=== PATIENT | female | born 1970 | race Caucasian/White ===

== ENCOUNTER 2019-11-16 12:45 | Outpatient (RCR) | payer OTHER, SELFPAY ==
--- NOTE | 2019-04-13 14:50 | PT.OIE ---
Current Diagnoses Rectocele (04/07/19) Pelvic and perineal pain (04/07/19) Urgency of urination (04/07/19) Provider Visit Care Team Role Provider Type Deepti Kerr MD Primary Care Provider Non-Staff Specialty: Family Practice Address: [address] [place], [address] Email: SYLVESTER Vivar Attending Provider Non-Staff Specialty: Medical Address: [address] [place] [address], [id number] Email: Physical Therapy Initial Evaluation PT-OP-A Visit Information Start: 04/07/19 09:03 Freq: Status: Active Protocol: Document 04/07/19 09:00 [facility] (Rec: 04/12/19 18:03 [facility] [email or web address]) Out-Patient Physical Therapy Visit Information Visit Information Visit Type Initial Evaluation Visit Note 48 year old female with rectocele and pelvic pressure who would like guidance on a exercise program and what she can do for exercise as she does not want to worsen the rectocele. She has had a hysterectomy and bladder sling repair in 2010. She reports she sling is too tight and it has given her many problems. She always feels as if she needs to void and she is retaining urine Visit Start Time 09:00 Visit Stop Time 09:45 Total Visit Minutes 45 Visit Number 1 Evaluation Information Evaluation Date 04/07/19 PT-OP-B Current Condition Start: 04/07/19 09:03 Freq: Status: Active Protocol: Document 04/07/19 09:00 [facility] (Rec: 04/13/19 12:13 [facility] [email or web address]) Current Condition History of Current Condition Onset Date 2010 Current Complaints pelvic organ prolapse and c/o pelvic heaviness History of Current Condition Symptoms began after her hysterectomy and bladder sling repair in 2010 but really became a issue in January 2019. She reports that she hadn't felt her rectocele until that time. She is unsure what she can do for exercises at this time as she does not want to make her symptoms worse. She likes to run for exercise but it was after intercourse and then a run in the same day that she began having symptoms of the rectocele. She reports feeling as if her bladder sling is too tight and it limits her ability to fully void. She always feels as if she needs to empty her bladder and needs to go to the bathroom. She also reports feeling that her labia is sensitive and it is tender with intercourse. She reports she is not tender in the deep internal muscles but just the labia. Casper has a history of 4 vaginal deliveries and did have tearing 2 degree with her first delivery in 1998. Her last delivery was 2007. Treatment Goals Patient/Caregiver Goals Pt's goals include being given direction on what exercises she can do and strengthening to prevent any further prolapse Current Functional Impairments (Reported) Functional Limitations- Recreation/ decreased ability to engage in Hobbies the types of exercise she would like to including running, pain occasionally causes her to avoid sexual intercourse. PT-OP-F Manual Assessment Start: 04/07/19 09:03 Freq: Status: Active Protocol: Document 04/07/19 09:00 [facility] (Rec: 04/13/19 14:47 [facility] [email or web address]) Manual Assessments Soft Tissue Assessment Soft Tissue Mobility Assessment myofascial tightness across the abdominal fascia Left > right and suprapubic fascia. There is decreased mobility of the bladder and there are fascial restrictions surrounding the bladder Casper is very tight and has high tone in her obliques even at rest bilateral PT-OP-I Pelvic Floor Start: 04/07/19 09:03 Freq: Status: Active Protocol: Document 04/07/19 09:00 [facility] (Rec: 04/13/19 14:47 [facility] [email or web address]) Pelvic Floor Assessment Urine Pelvic Floor Surgery Yes Urinary Symptoms Urge Sensation Incomplete Emptying Pain Other Urinary Symptoms also c/o sensitivity and pain in the labia region B, will also feel as if she is swollen following intercourse Leaks Per Day 0 Pelvic Clock Pelvic Clock 12-3 Atrophy Pelvic Clock 3-6 Atrophy Pelvic Clock 6-9 Atrophy Pelvic Clock 9-12 Atrophy Prolapse Rectocele Grade 2 Contraction Ability Voluntary Contraction Weak Voluntary Relaxation Weak Manual Muscle Testing Left 2 Manual Muscle Testing Right 2 Manual Muscle Testing Anterior 2 Manual Muscle Testing Posterior 2 PT-OP-J Posture/Palpation/Skin Start: 04/07/19 09:03 Freq: Status: Active Protocol: Document 04/07/19 09:00 [facility] (Rec: 04/13/19 14:47 [facility] [email or web address]) Palpation Assessment Location One Palpation Location bladder/suprapubic fascia Palpation Findings Soft Tissue Tightness Spasm Muscle Guarding Palpation Details palpation over the bladder reproduces c/o urgency PT-OP-Q Treatments Start: 04/07/19 09:03 Freq: Status: Active Protocol: Document 04/07/19 09:00 [facility] (Rec: 04/13/19 14:47 [facility] [email or web address]) Therapeutic Exercises Supine Exercises 1 Supine Exercise Name pt given 10 second hold and 10 second relaxation for HEP Side bilateral Reps/Minutes 2 x 10 reps per day Self-Care/Home Management Treatment Education Patient Education Home Exercise Program Other Education pt given ILU self massage to begin moving the myofascial tissue in the abodomen and over the colon, she was also taught a stretch to the suprapubic fascia PT-OP-T Assessment and Plan Start: 04/07/19 09:03 Freq: Status: Active Protocol: Document 04/07/19 09:00 [facility] (Rec: 04/13/19 14:47 [facility] [email or web address]) Physical Therapy Assessment Rehab Potential Rehabilitation Potential Excellent Evaluation Complexity Number of Personal Factors/Comorbidities 0 Number of Body Systems Impaired 1-2 Clinical Presentation at Evaluation Stable Impairments Impairments Activity Tolerance Functional Activities Pain Soft Tissue Mobility Strength Tone Goals Four Impairment Casper lacks a home exercise program for pelvic floor muscle strengthening Income Tax Auditor Goal (LTG) Casper is independent with a home program for pelvic floor strengthening and endurance training LTG Duration 8 weeks Three Impairment myosfacial restrictions in the suprapubic fascia Snf Goal (LTG) There is improved mobility of the fascial tissue in the subrapubic fascia, over the bladder, and abdominal wall creating more space for the bladder to expand and reducing downward pressure on the pelvic organs. Casper reports decreased c/o urgency LTG Duration 8 weeks Two Impairment c/o swelling and heaviness in the pelvic floor especially following running Short Term Goal (STG) Casper is educated on techniques to elevate her pelvis to decrease swelling and body engineer training to avoid downward pressure STG Duration 4 weeks Snf Goal (LTG) With strengthening there is a overall reduction in c/o pelvic pressure and swelling LTG Duration 8 weeks One Impairment pelvic floor weakness with rectocele Income Tax Auditor Goal (LTG) Casper is able to improve strength of the levator ani from 2/5 to 4/5 MMT for improved support of her pelvic organs LTG Duration 8 weeks Assessment Summary Assessment Casper presents to physical therapy today with symptoms of a rectal prolapse and urgency symptoms from her bladder. She reports her symptoms of bladder urgency began following a hysterectomy and bladder sling surgery. She reports folllowing this surgery she felt as if the sling was too tight. She reports feeling as if she always needs to void and has been told she is retaining urine. SHe also c/o a sensitivity to her labia since surgery. She reports intercourse is tender in the labia region but not internal pain. Casper began experiencing symptoms of the rectal prolapse in January 2019. She had intercourse and went for a run in the same day. During her run she began noting pelvic pressure and heavyness and a swollen feeling. Since this time she has been afraid to continue running as she doesn't want to worsen things. With exam today she has a great deal of myofascial restrictions in the supra pubic fascia and left side of the abdominal wall . She is very tight in her obliques and tends to hold tension here at rest. There is decreased bladder mobility and palpation over the bladder increases c/o urgency. With internal exam there is a 2nd degree rectal prolapse. All portions of the levator ani is weak and endurance is limited . Casper is a good candidate for PT and treatment will include myofasical release over the abdominal wall and suprapubic fascia, pelvic floor strengthening and endurance training, stretches for the anterior abdominal wall and work on relaxing the obliques at rest to avoid downward pressure on the pelvic organs. Physical Therapy Plan Frequency and Duration Frequency of Treatment 1x/Week Duration of Treatment 8 weeks Plan of Care Start Date 04/07/19 Plan of Care End Date 06/02/19 Therapeutic Interventions Therapeutic Interventions Home Exercise Program Manual Therapy Neuromuscular Re-education Patient/Caregiver Education Self-Care/Home Management Soft Tissue Mobilization Therapeutic Exercises Modalities Biofeedback Electric Stimulation Next Visit Focus/Plan Next Note Type Treatment Note Next Visit Plan Begin EMG biofeedback for pelvic floor neuromuscular awareness and work on myofascial restrictions next visit
--- NOTE | 2019-04-13 14:51 | PT.OPPOC ---
Current Diagnoses Rectocele (04/07/19) Pelvic and perineal pain (04/07/19) Urgency of urination (04/07/19) Provider Visit Care Team Role Provider Type Deepti Kerr MD Primary Care Provider Non-Staff Specialty: Family Practice Address: [address] [place] [address], [id number] Email: SYLVESTER Vivar Attending Provider Non-Staff Specialty: Medical Address: [address] [place] [address], [id number] Email: Plan Of Care PT-OP-T Assessment and Plan Start: 04/07/19 09:03 Freq: Status: Active Protocol: Document 04/07/19 09:00 [facility] (Rec: 04/13/19 14:47 [facility] [email or web address]) Physical Therapy Assessment Rehab Potential Rehabilitation Potential Excellent Evaluation Complexity Number of Personal Factors/Comorbidities 0 Number of Body Systems Impaired 1-2 Clinical Presentation at Evaluation Stable Impairments Impairments Activity Tolerance Functional Activities Pain Soft Tissue Mobility Strength Tone Goals Four Impairment Casper lacks a home exercise program for pelvic floor muscle strengthening Jail Goal (LTG) Casper is independent with a home program for pelvic floor strengthening and endurance training LTG Duration 8 weeks Three Impairment myosfacial restrictions in the suprapubic fascia Business Management Specialist Goal (LTG) There is improved mobility of the fascial tissue in the subrapubic fascia, over the bladder, and abdominal wall creating more space for the bladder to expand and reducing downward pressure on the pelvic organs. 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 She reports her symptoms of bladder urgency began following a hysterectomy and bladder sling surgery. She reports following this surgery she felt as if the sling was too tight. She reports feeling as if she always needs to void and has been told she is retaining urine. She also c/o a sensitivity to her labia since surgery. She reports intercourse is tender in the labia region but not internal pain. Casper began experiencing symptoms of the rectal prolapse in January 2019. She had intercourse and went for a run in the same day. During her run she began noting pelvic pressure and heaviness and a swollen feeling. Since this time she has been afraid to continue running as she doesn't want to worsen things. With exam today she has a great deal of myofascial restrictions in the supra pubic fascia and left side of the abdominal wall . She is very tight in her obliques and tends to hold tension here at rest. There is decreased bladder mobility and palpation over the bladder increases c/o urgency. With internal exam there is a 2nd degree rectal prolapse. All portions of the levator ani is weak and endurance is limited. Casper is a good candidate for PT and treatment will include myofasical release over the abdominal wall and suprapubic fascia, pelvic floor strengthening and endurance training, stretches for the anterior abdominal wall and work on relaxing the obliques at rest to avoid downward pressure on the pelvic organs. Physical Therapy Plan Frequency and Duration Frequency of Treatment 1x/Week Duration of Treatment 8 weeks Plan of Care Start Date 04/07/19 Plan of Care End Date 06/02/19 Therapeutic Interventions Therapeutic Interventions Home Exercise Program Manual Therapy Neuromuscular Re-education Patient/Caregiver Education Self-Care/Home Management Soft Tissue Mobilization Therapeutic Exercises Modalities Biofeedback Electric Stimulation Next Visit Focus/Plan Next Note Type Treatment Note Next Visit Plan Begin EMG biofeedback for pelvic floor neuromuscular awareness and work on myofascial restrictions next visit Plan of Care Dates Plan of Care Start Date 04/07/19 Plan of Care End Date 06/02/19 Please Sign and Return: I have reviewed this Plan of Care and certify that the skilled therapy services above are required to meet the patient?s needs. Physician Signature Date Printed Name and Credentials Clinical Instructor Signature Printed Name and Credentials
--- NOTE | 2019-04-21 17:16 | PT.OTN ---
Current Diagnoses Rectocele (04/21/19) Pelvic and perineal pain (04/21/19) Urgency of urination (04/21/19) Physical Therapy Treatment Note PT-OP-A Visit Information Start: 04/07/19 09:03 Freq: Status: Active Protocol: Document 04/21/19 13:03 [facility] (Rec: 04/21/19 13:05 [facility] [email or web address]) Out-Patient Physical Therapy Visit Information Visit Information Visit Type Treatment Note Visit Start Time 09:00 Visit Stop Time 09:45 Total Visit Minutes 45 Visit Number 2 PT-OP-B Current Condition Start: 04/07/19 09:03 Freq: Status: Active Protocol: Document 04/07/19 09:00 [facility] (Rec: 04/13/19 12:13 [facility] [email or web address]) Current Condition History of Current Condition Onset Date 2010 Current Complaints pelvic organ prolapse and c/o pelvic heavyness History of Current Condition Symptoms began after her hysterectomy and bladder sling repair in 2010 but really became a issue in January 2019. She reports that she hadn't felt her rectocele until that time. She is unsure what she can do for exercises at this time as she does not want to make her symptoms worse. She likes to run for exercise but it was after intercourse and then a run in the same day that she began having symptoms of the rectocele. She reports feeling as if her bladder sling is too tight and it limits her ability to fully void. She always feels as if she needs to empty her bladder and needs to go to the bathroom. She also reports feeling that her labia is sensitive and it is tender with intercourse. She reports she is not tender in the deep internal muscles but just the labia. Casper has a history of 4 vaginal deliveries and did have tearing 2 degree with her first delivery in 1998. Her last delivery was 2007. Treatment Goals Patient/Caregiver Goals Pt's goals include being given direction on what exercises she can do and strengthening to prevent any further prolapse Current Functional Impairments (Reported) Functional Limitations- Recreation/ decreased ability to engage in Hobbies the types of exercise she would like to including running, pain occasionally causes her to avoid sexual intercourse. PT-OP-C Subjective Start: 04/07/19 09:03 Freq: Status: Active Protocol: Document 04/21/19 13:03 [facility] (Rec: 04/21/19 13:05 [facility] [email or web address]) OP-PT Subjective Patient Comments Patient Comments Casper reports she has been working on the legs up the wall and elevating her pelvis. She reports that when doing her exercises she can tell her pelvic floor muscles are getting tighter but they dont want to relax after she contracts PT-OP-F Manual Assessment Start: 04/07/19 09:03 Freq: Status: Active Protocol: Document 04/07/19 09:00 [facility] (Rec: 04/13/19 14:47 [facility] [email or web address]) Manual Assessments Soft Tissue Assessment Soft Tissue Mobility Assessment myofascial tightness across the abdominal fascia Left > right and suprapubic fascia. There is decreased mobility of the bladder and there are fascial restrictions surrounding the bladder Casper is very tight and has high tone in her obliques even at rest bilateral PT-OP-I Pelvic Floor Start: 04/07/19 09:03 Freq: Status: Active Protocol: Document 04/07/19 09:00 [facility] (Rec: 04/13/19 14:47 [facility] [email or web address]) Pelvic Floor Assessment Urine Pelvic Floor Surgery Yes Urinary Symptoms Urge Sensation Incomplete Emptying Pain Other Urinary Symptoms also c/o sensitivity and pain in the labia region B, will also feel as if she is swollen following intercourse Leaks Per Day 0 Pelvic Clock Pelvic Clock 12-3 Atrophy Pelvic Clock 3-6 Atrophy Pelvic Clock 6-9 Atrophy Pelvic Clock 9-12 Atrophy Prolapse Rectocele Grade 2 Contraction Ability Voluntary Contraction Weak Voluntary Relaxation Weak Manual Muscle Testing Left 2 Manual Muscle Testing Right 2 Manual Muscle Testing Anterior 2 Manual Muscle Testing Posterior 2 PT-OP-J Posture/Palpation/Skin Start: 04/07/19 09:03 Freq: Status: Active Protocol: Document 04/07/19 09:00 [facility] (Rec: 04/13/19 14:47 [facility] [email or web address]) Palpation Assessment Location One Palpation Location bladder/suprapubic fascia Palpation Findings Soft Tissue Tightness Spasm Muscle Guarding Palpation Details palpation over the bladder reproduces c/o urgency PT-OP-Q Treatments Start: 04/07/19 09:03 Freq: Status: Active Protocol: Document 04/21/19 17:08 [facility] (Rec: 04/21/19 17:16 [facility] [email or web address]) Therapeutic Exercises Supine Exercises 2 Supine Exercise Name supine diaphragmatic breathing 1 Supine Exercise Name pt given 10 second hold and 10 second relaxation for HEP Side bilateral Reps/Minutes 2 x 10 reps per day Prone Exercises 1 Prone Exercise Name prone cobra stretch Comments to relax the bladder Other Exercises 2 Other Exercise Name brooke pose Comments emphasis on relaxation of the pelvic floor and spreading the sitting bones 1 Other Exercise Name happy baby stretch Manual Therapy Treatment Soft Tissue Mobilization 2 Body Location MFR to the subrapubic fascia and bladder 1 Body Location ILU massage over the colon Neuro Re-Education Treatment Other Activities 1 Details pelvic floor neuro re- education and relaxed awareness Comments used guided imagery to help with pelvic floor relaxation and EMG biofeedback to assist with facilitation of the pelvic floor. PT-OP-T Assessment and Plan Start: 04/07/19 09:03 Freq: Status: Active Protocol: Document 04/21/19 17:08 [facility] (Rec: 04/21/19 17:16 [facility] [email or web address]) Physical Therapy Assessment Assessment Summary Assessment Worked today on relaxed awareness of the pelvic floor with stretches for the pelvis and manual therapy techniques, Casper really likes elevating her legs up the wall as this takes pressure off her pelvic floor. Average contraction on EMG biofeedback is 13.2 with max of 21.6 and average rest is 8.9 uv. Casper tends to guard with her upper abdominal wall. Physical Therapy Plan Next Visit Focus/Plan Next Note Type Treatment Note Next Visit Plan continue to work on relaxed awareness of the pelvic floor as well as bringing in more pelvic floor support. COntinue with MFR techniques
--- NOTE | 2019-05-23 07:42 | PT.OTN ---
Current Diagnoses Rectocele (05/19/19) Pelvic and perineal pain (05/19/19) Urgency of urination (05/19/19) Physical Therapy Treatment Note PT-OP-A Visit Information Start: 04/07/19 09:03 Freq: Status: Active Protocol: Document 05/19/19 10:11 [facility] (Rec: 05/19/19 10:26 [facility] [email or web address]) Out-Patient Physical Therapy Visit Information Visit Information Visit Type Treatment Note Visit Start Time 09:00 Visit Stop Time 09:45 Total Visit Minutes 45 Visit Number 3 PT-OP-B Current Condition Start: 04/07/19 09:03 Freq: Status: Active Protocol: Document 04/07/19 09:00 [facility] (Rec: 04/13/19 12:13 [facility] [email or web address]) Current Condition History of Current Condition Onset Date 2010 Current Complaints pelvic organ prolapse and c/o pelvic heavyness History of Current Condition Symptoms began after her hysterectomy and bladder sling repair in 2010 but really became a issue in January 2019. She reports that she hadn't felt her rectocele until that time. She is unsure what she can do for exercises at this time as she does not want to make her symptoms worse. She likes to run for exercise but it was after intercourse and then a run in the same day that she began having symptoms of the rectocele. She reports feeling as if her bladder sling is too tight and it limits her ability to fully void. She always feels as if she needs to empty her bladder and needs to go to the bathroom. She also reports feeling that her labia is sensitive and it is tender with intercourse. She reports she is not tender in the deep internal muscles but just the labia. Casper has a history of 4 vaginal deliveries and did have tearing 2 degree with her first delivery in 1998. Her last delivery was 2007. Treatment Goals Patient/Caregiver Goals Pt's goals include being given direction on what exercises she can do and strengthening to prevent any further prolapse Current Functional Impairments (Reported) Functional Limitations- Recreation/ decreased ability to engage in Hobbies the types of exercise she would like to including running, pain occasionally causes her to avoid sexual intercourse. PT-OP-C Subjective Start: 04/07/19 09:03 Freq: Status: Active Protocol: Document 05/19/19 10:11 [facility] (Rec: 05/19/19 10:26 [facility] [email or web address]) OP-PT Subjective Patient Comments Patient Comments Casper reports her rectocele seems not as much as it had, bowl movements are much improved. She has been working on legs up the wall and stretches. She also saw a women's health PT in [place] for a second opinion. PT-OP-F Manual Assessment Start: 04/07/19 09:03 Freq: Status: Active Protocol: Document 04/07/19 09:00 [facility] (Rec: 04/13/19 14:47 [facility] [email or web address]) Manual Assessments Soft Tissue Assessment Soft Tissue Mobility Assessment myofascial tightness across the abdominal fascia Left > right and suprapubic fascia. There is decreased mobility of the bladder and there are fascial restrictions surrounding the bladder Casper is very tight and has high tone in her obliques even at rest bilateral PT-OP-I Pelvic Floor Start: 04/07/19 09:03 Freq: Status: Active Protocol: Document 04/07/19 09:00 [facility] (Rec: 04/13/19 14:47 [facility] [email or web address]) Pelvic Floor Assessment Urine Pelvic Floor Surgery Yes Urinary Symptoms Urge Sensation,Incomplete Emptying,Pain Other Urinary Symptoms also c/o sensitivity and pain in the labia region B, will also feel as if she is swollen following intercourse Leaks Per Day 0 Pelvic Clock Pelvic Clock 12-3 Atrophy Pelvic Clock 3-6 Atrophy Pelvic Clock 6-9 Atrophy Pelvic Clock 9-12 Atrophy Prolapse Rectocele Grade 2 Contraction Ability Voluntary Contraction Weak Voluntary Relaxation Weak Manual Muscle Testing Left 2 Manual Muscle Testing Right 2 Manual Muscle Testing Anterior 2 Manual Muscle Testing Posterior 2 PT-OP-J Posture/Palpation/Skin Start: 04/07/19 09:03 Freq: Status: Active Protocol: Document 04/07/19 09:00 [facility] (Rec: 04/13/19 14:47 [facility] [email or web address]) Palpation Assessment Location One Palpation Location bladder/suprapubic fascia Palpation Findings Soft Tissue Tightness,Spasm, Muscle Guarding Palpation Details palpation over the bladder reproduces c/o urgency PT-OP-Q Treatments Start: 04/07/19 09:03 Freq: Status: Active Protocol: Document 05/19/19 10:11 [facility] (Rec: 05/19/19 10:26 [facility] [email or web address]) Therapeutic Exercises Supine Exercises 3 Supine Exercise Name TA with marches and heel slides Comments HEP 2 Supine Exercise Name supine diaphragmatic breathing Comments worked on inhale x 4, hold x 4 seconds, exhale x 4 1 Supine Exercise Name pt given 10 second hold and 10 second relaxation for HEP Side bilateral Reps/Minutes 2 x 10 reps per day Prone Exercises 1 Prone Exercise Name prone cobra stretch Comments to relax the bladder Other Exercises 3 Other Exercise Name foam roll stetch both horizontal and vertical direction 2 Other Exercise Name brooke pose Comments emphasis on relaxation of the pelvic floor and spreading the sitting bones 1 Comments HEP Manual Therapy Treatment Soft Tissue Mobilization 3 Body Location posterior pelvic floor release internally with MFR Comments left greater than right tightness still but much better contraction ability and improved ability to relax her pelvic floor 2 Body Location MFR to the subrapubic fascia and bladder and fascia around the rib cage 1 Body Location ILU massage over the colon and MFR to the abdominal wall PT-OP-T Assessment and Plan Start: 04/07/19 09:03 Freq: Status: Active Protocol: Document 05/19/19 10:11 [facility] (Rec: 05/19/19 10:26 [facility] [email or web address]) Physical Therapy Assessment Assessment Summary Assessment Casper did not have her electrode with her today so we did not do biofeedback. We worked on relaxation of the abdominal wall, added in TA facilitation with yoseph. She is doing much better with decreased overdominance of the obliques. She is wanting to begin more advanced abdominal exercises but I had her hold off until she is solid with her 10 second pelvic floor contractions. The marches are a challange for her as she needs to re-set her pelvic floor each time she lifts her leg. Physical Therapy Plan Frequency and Duration Frequency of Treatment 1x/Week Duration of Treatment 8 weeks Plan of Care Start Date 04/07/19 Plan of Care End Date 06/02/19 Therapeutic Interventions Therapeutic Interventions Home Exercise Program,Manual Therapy,Neuromuscular Re- education,Patient/Caregiver Education,Self-Care/Home Management,Soft Tissue Mobilization,Therapeutic Exercises Next Visit Focus/Plan Next Note Type Treatment Note Next Visit Plan EMG biofeedback, review all new exercises and breath work next visit
--- NOTE | 2019-05-29 20:59 | PT.OTN ---
Current Diagnoses Rectocele (05/26/19) Pelvic and perineal pain (05/26/19) Urgency of urination (05/26/19) Physical Therapy Treatment Note PT-OP-A Visit Information Start: 04/07/19 09:03 Freq: Status: Active Protocol: Document 05/26/19 09:45 [facility] (Rec: 05/29/19 20:59 [facility] [email or web address]) Out-Patient Physical Therapy Visit Information Visit Information Visit Type Treatment Note Visit Start Time 09:45 Visit Stop Time 10:30 Total Visit Minutes 45 Visit Number 4 PT-OP-B Current Condition Start: 04/07/19 09:03 Freq: Status: Active Protocol: Document 04/07/19 09:00 [facility] (Rec: 04/13/19 12:13 [facility] [email or web address]) Current Condition History of Current Condition Onset Date 2010 Current Complaints pelvic organ prolapse and c/o pelvic heavyness History of Current Condition Symptoms began after her hysterectomy and bladder sling repair in 2010 but really became a issue in January 2019. She reports that she hadn't felt her rectocele until that time. She is unsure what she can do for exercises at this time as she does not want to make her symptoms worse. She likes to run for exercise but it was after intercourse and then a run in the same day that she began having symptoms of the rectocele. She reports feeling as if her bladder sling is too tight and it limits her ability to fully void. She always feels as if she needs to empty her bladder and needs to go to the bathroom. She also reports feeling that her labia is sensitive and it is tender with intercourse. She reports she is not tender in the deep internal muscles but just the labia. Casper has a history of 4 vaginal deliveries and did have tearing 2 degree with her first delivery in 1998. Her last delivery was 2007. Treatment Goals Patient/Caregiver Goals Pt's goals include being given direction on what exercises she can do and strengthening to prevent any further prolapse Current Functional Impairments (Reported) Functional Limitations- Recreation/ decreased ability to engage in Hobbies the types of exercise she would like to including running, pain occasionally causes her to avoid sexual intercourse. PT-OP-C Subjective Start: 04/07/19 09:03 Freq: Status: Active Protocol: Document 05/26/19 09:45 [facility] (Rec: 05/29/19 20:59 [facility] [email or web address]) OP-PT Subjective Patient Comments Patient Comments liked the foam rollar last visit but realized her shoulders are sensitve to this as she had irritated them due to doing a great number of pushups a while back. Feels like she is doing much better with bowel movements and decreasing downward pressure. Still has labia sensitivities PT-OP-F Manual Assessment Start: 04/07/19 09:03 Freq: Status: Active Protocol: Document 04/07/19 09:00 [facility] (Rec: 04/13/19 14:47 [facility] [email or web address]) Manual Assessments Soft Tissue Assessment Soft Tissue Mobility Assessment myofascial tightness across the abdominal fascia Left > right and suprapubic fascia. There is decreased mobility of the bladder and there are fascial restrictions surrounding the bladder Casper is very tight and has high tone in her obliques even at rest bilateral PT-OP-I Pelvic Floor Start: 04/07/19 09:03 Freq: Status: Active Protocol: Document 04/07/19 09:00 [facility] (Rec: 04/13/19 14:47 [facility] [email or web address]) Pelvic Floor Assessment Urine Pelvic Floor Surgery Yes Urinary Symptoms Urge Sensation,Incomplete Emptying,Pain Other Urinary Symptoms also c/o sensitivity and pain in the labia region B, will also feel as if she is swollen following intercourse Leaks Per Day 0 Pelvic Clock Pelvic Clock 12-3 Atrophy Pelvic Clock 3-6 Atrophy Pelvic Clock 6-9 Atrophy Pelvic Clock 9-12 Atrophy Prolapse Rectocele Grade 2 Contraction Ability Voluntary Contraction Weak Voluntary Relaxation Weak Manual Muscle Testing Left 2 Manual Muscle Testing Right 2 Manual Muscle Testing Anterior 2 Manual Muscle Testing Posterior 2 PT-OP-J Posture/Palpation/Skin Start: 04/07/19 09:03 Freq: Status: Active Protocol: Document 04/07/19 09:00 [facility] (Rec: 04/13/19 14:47 [facility] [email or web address]) Palpation Assessment Location One Palpation Location bladder/suprapubic fascia Palpation Findings Soft Tissue Tightness,Spasm, Muscle Guarding Palpation Details palpation over the bladder reproduces c/o urgency PT-OP-Q Treatments Start: 04/07/19 09:03 Freq: Status: Active Protocol: Document 05/26/19 09:45 [facility] (Rec: 05/29/19 20:59 [facility] [email or web address]) Therapeutic Exercises Supine Exercises 3 Supine Exercise Name TA with marches and heel slides Comments HEP 2 Supine Exercise Name supine diaphragmatic breathing Comments worked on inhale x 4, hold x 4 seconds, exhale x 4 1 Supine Exercise Name pt given 10 second hold and 10 second relaxation for HEP Side bilateral Reps/Minutes 2 x 10 reps per day Manual Therapy Treatment Soft Tissue Mobilization 3 Body Location posterior pelvic floor release internally with MFR Comments left greater than right tightness still but much better contraction ability and improved ability to relax her pelvic floor 2 Body Location MFR to the subrapubic fascia and bladder and fascia around the rib cage 1 Body Location ILU massage over the colon and MFR to the abdominal wall PT-OP-T Assessment and Plan Start: 04/07/19 09:03 Freq: Status: Active Protocol: Document 05/26/19 09:45 [facility] (Rec: 05/29/19 20:59 [facility] [email or web address]) Physical Therapy Assessment Assessment Summary Assessment average on EMG biofeedback was 8.5 with max of 13.9 HEr resting tone was 4.4 uvaverage . She is tolerating strengthening without a increase in spasm or pain. We talked today about vulvar vericosities in and possible pelvic congestion that could improve with pelvic floor strengthening as the pelvic floor is acts as a sump pump. She notes having very large vericosities during her . Physical Therapy Plan Frequency and Duration Frequency of Treatment 1x/Week Duration of Treatment 8 weeks Plan of Care Start Date 04/07/19 Plan of Care End Date 06/02/19 Next Visit Focus/Plan Next Note Type Treatment Note Next Visit Plan trial of NMES next visit
--- NOTE | 2019-06-02 12:36 | PT.OTN ---
Current Diagnoses Rectocele (06/02/19) Pelvic and perineal pain (06/02/19) Urgency of urination (06/02/19) Physical Therapy Treatment Note PT-OP-A Visit Information Start: 04/07/19 09:03 Freq: Status: Active Protocol: Document 06/02/19 11:14 [facility] (Rec: 06/02/19 11:17 [facility] [id number]) Out-Patient Physical Therapy Visit Information Visit Information Visit Type Treatment Note Visit Start Time 11:15 Visit Stop Time 12:00 Total Visit Minutes 45 Visit Number 5 Evaluation Information Evaluation Date 04/07/19 PT-OP-B Current Condition Start: 04/07/19 09:03 Freq: Status: Active Protocol: Document 04/07/19 09:00 AM[facility] (Rec: 04/13/19 12:13 [facility] [email or web address]) Current Condition History of Current Condition Onset Date 2010 Current Complaints pelvic organ prolapse and c/o pelvic heavyness History of Current Condition Symptoms began after her hysterectomy and bladder sling repair in 2010 but really became a issue in January 2019. She reports that she hadn't felt her rectocele until that time. She is unsure what she can do for exercises at this time as she does not want to make her symptoms worse. She likes to run for exercise but it was after intercourse and then a run in the same day that she began having symptoms of the rectocele. She reports feeling as if her bladder sling is too tight and it limits her ability to fully void. She always feels as if she needs to empty her bladder and needs to go to the bathroom. She also reports feeling that her labia is sensitive and it is tender with intercourse. She reports she is not tender in the deep internal muscles but just the labia. Casper has a history of 4 vaginal deliveries and did have tearing 2 degree with her first delivery in 1998. Her last delivery was 2007. Treatment Goals Patient/Caregiver Goals Pt's goals include being given direction on what exercises she can do and strengthening to prevent any further prolapse Current Functional Impairments (Reported) Functional Limitations- Recreation/ decreased ability to engage in Hobbies the types of exercise she would like to including running, pain occasionally causes her to avoid sexual intercourse. PT-OP-C Subjective Start: 04/07/19 09:03 Freq: Status: Active Protocol: Document 06/02/19 11:14 [facility] (Rec: 06/02/19 11:17 [facility] [id number]) OP-PT Subjective Patient Comments Patient Comments Labia irritation is still present, pelvic pressure is getting better overall. She can tell after intercourse with her that her labia is irritated PT-OP-F Manual Assessment Start: 04/07/19 09:03 Freq: Status: Active Protocol: Document 04/07/19 09:00 [facility] (Rec: 04/13/19 14:47 [facility] [email or web address]) Manual Assessments Soft Tissue Assessment Soft Tissue Mobility Assessment myofascial tightness across the abdominal fascia Left > right and suprapubic fascia. There is decreased mobility of the bladder and there are fascial restrictions surrounding the bladder Casper is very tight and has high tone in her obliques even at rest bilateral PT-OP-I Pelvic Floor Start: 04/07/19 09:03 Freq: Status: Active Protocol: Document 04/07/19 09:00 [facility] (Rec: 04/13/19 14:47 [facility] [email or web address]) Pelvic Floor Assessment Urine Pelvic Floor Surgery Yes Urinary Symptoms Urge Sensation,Incomplete Emptying,Pain Other Urinary Symptoms also c/o sensitivity and pain in the labia region B, will also feel as if she is swollen following intercourse Leaks Per Day 0 Pelvic Clock Pelvic Clock 12-3 Atrophy Pelvic Clock 3-6 Atrophy Pelvic Clock 6-9 Atrophy Pelvic Clock 9-12 Atrophy Prolapse Rectocele Grade 2 Contraction Ability Voluntary Contraction Weak Voluntary Relaxation Weak Manual Muscle Testing Left 2 Manual Muscle Testing Right 2 Manual Muscle Testing Anterior 2 Manual Muscle Testing Posterior 2 PT-OP-J Posture/Palpation/Skin Start: 04/07/19 09:03 Freq: Status: Active Protocol: Document 04/07/19 09:00 [facility] (Rec: 04/13/19 14:47 [facility] [email or web address]) Palpation Assessment Location One Palpation Location bladder/suprapubic fascia Palpation Findings Soft Tissue Tightness,Spasm, Muscle Guarding Palpation Details palpation over the bladder reproduces c/o urgency PT-OP-Q Treatments Start: 04/07/19 09:03 Freq: Status: Active Protocol: Document 06/02/19 12:23 [facility] (Rec: 06/02/19 12:36 [facility] [email or web address]) Therapeutic Exercises Supine Exercises 4 Supine Exercise Name iliopsoas stretch off edge of bed, 1/2 kneeling 1 Supine Exercise Name pt given 10 second hold and 10 second relaxation for HEP Side bilateral Reps/Minutes 2 x 10 reps per day Manual Therapy Treatment Soft Tissue Mobilization 4 Body Location Left side iliacus and oblique release 2 Body Location MFR to the subrapubic fascia and bladder and fascia around the rib cage 1 Body Location ILU massage over the colon and MFR to the abdominal wall Neuro Re-Education Treatment Other Activities 1 Details NMES Reps/Duration x 10 minutes Comments level 15 ,used for improved facilitation of the pelvic floor PT-OP-T Assessment and Plan Start: 04/07/19 09:03 Freq: Status: Active Protocol: Document 06/02/19 12:23 [facility] (Rec: 06/02/19 12:36 [facility] [email or web address]) Physical Therapy Assessment Goals Four Impairment Casper lacks a home exercise program for pelvic floor muscle strengthening Vacuum Conditioner Operator Goal (LTG) Casper is independent with a home program for pelvic floor strengthening and endurance training Excellent progress, we are contining to modify and increase this program LTG Duration 8 weeks Three Impairment myosfacial restrictions in the suprapubic fascia Vacuum Conditioner Operator Goal (LTG) There is improved mobility of the fascial tissue in the subrapubic fascia, over the bladder, and abdominal wall creating more space for the bladder to expand and reducing downward pressure on the pelvic organs. Casper reports decreased c/o urgency Excellent progress LTG Duration 8 weeks Two Impairment c/o swelling and heaviness in the pelvic floor especially following running Short Term Goal (STG) Casper is educated on techniques to elevate her pelvis to decrease swelling and body painter training to avoid downward pressure GOAL MET STG Duration 4 weeks Vacuum Conditioner Operator Goal (LTG) With strengthening there is a overall reduction in c/o pelvic pressure and swelling EXCELLENT PROGRESS LTG Duration 8 weeks One Impairment pelvic floor weakness with rectocele Vacuum Conditioner Operator Goal (LTG) Casper is able to improve strength of the levator ani from 2/5 to 4/5 MMT for improved support of her pelvic organs EXCELLENT PROGRESS LTG Duration 8 weeks Progress Towards Goals Progress Towards Goals Progressing Toward Goals Assessment Summary Assessment Casper is responding well to physical therapy. She is noting overall a decrease in pelvic pressure and she is no longer having to strain with bowel movements. Her pelvic floor strength is slowly improving and resting tone of the pelvic floor slowly decreasing. She still has difficulty with urine stream and feels a irritation in the labia expecially after intercourse or with wearing tight clothing such as jeans. Treatment has included relaxed awareness of the pelvic floor and abdominal wall, abdominal and anterior pelvic fascia release, EMG biofeedback for pelvic floor re-education. Today I did a trial of NMES with good tolerance for improved pelvic floor facilitation. Casper's resting tone was very low today and had dropped down to baseline. Casper was very fatigued following NMES. I also found some tightness in her internal oblique and iliacus on the left which we will continue to work on loosening. She is making good progress and would benefit from continuing PT Physical Therapy Plan Frequency and Duration Frequency of Treatment 1x/Week Duration of Treatment 8 weeks Plan of Care Start Date 06/02/19 Plan of Care End Date 07/28/19 Therapeutic Interventions Therapeutic Interventions Home Exercise Program,Manual Therapy,Neuromuscular Re- education,Patient/Caregiver Education,Self-Care/Home Management,Soft Tissue Mobilization,Therapeutic Exercises Next Visit Focus/Plan Next Note Type Treatment Note Next Visit Plan continue with NMES for the pelvic floor, MFR over the left iliacus and oblique region and attachments to the pubic bone.
--- NOTE | 2019-06-02 12:36 | PT.OPPOC ---
Current Diagnoses Rectocele (06/02/19) Pelvic and perineal pain (06/02/19) Urgency of urination (06/02/19) Visit Care Team Role Provider Type Deepti Kerr MD Primary Care Provider Non-Staff Specialty: Family Practice Address: [facility] [place], [address] Email: SYLVESTER Vivar Attending Provider Non-Staff Specialty: Medical Address: [address] [place] [address], [id number] Email: Plan Of Care PT-OP-T Assessment and Plan Start: 04/07/19 09:03 Freq: Status: Active Protocol: Document 06/02/19 12:23 [facility] (Rec: 06/02/19 12:36 [facility] [email or web address]) Physical Therapy Assessment Goals Four Impairment Casper lacks a home exercise program for pelvic floor muscle strengthening Custodial Goal (LTG) Casper is independent with a home program for pelvic floor strengthening and endurance training Excellent progress, we are contining to modify and increase this program LTG Duration 8 weeks Three Impairment myosfacial restrictions in the suprapubic fascia Custodial Goal (LTG) There is improved mobility of the fascial tissue in the subrapubic fascia, over the bladder, and abdominal wall creating more space for the bladder to expand and reducing downward pressure on the pelvic organs. 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 She is noting overall a decrease in pelvic pressure and she is no longer having to strain with bowel movements. Her pelvic floor strength is slowly improving and resting tone of the pelvic floor slowly decreasing. She still has difficulty with urine stream and feels a irritation in the labia expecially after intercourse or with wearing tight clothing such as jeans. Treatment has included relaxed awareness of the pelvic floor and abdominal wall, abdominal and anterior pelvic fascia release, EMG biofeedback for pelvic floor re-education. Today I did a trial of NMES with good tolerance for improved pelvic floor facilitation. Casper's resting tone was very low today and had dropped down to baseline. Casper was very fatigued following NMES. I also found some tightness in her internal oblique and iliacus on the left which we will continue to work on loosening. She is making good progress and would benefit from continuing PT Physical Therapy Plan Frequency and Duration Frequency of Treatment 1x/Week Duration of Treatment 8 weeks Plan of Care Start Date 06/02/19 Plan of Care End Date 07/28/19 Therapeutic Interventions Therapeutic Interventions Home Exercise Program,Manual Therapy,Neuromuscular Re- education,Patient/Caregiver Education,Self-Care/Home Management,Soft Tissue Mobilization,Therapeutic Exercises Next Visit Focus/Plan Next Note Type Treatment Note Next Visit Plan continue with NMES for the pelvic floor, MFR over the left iliacus and oblique region and attachments to the pubic bone. Plan of Care Dates Plan of Care Start Date 06/02/19 Plan of Care End Date 07/28/19 Please Sign and Return: I have reviewed this Plan of Care and certify that the skilled therapy services above are required to meet the patient?s needs. Physician Signature Date Printed Name and Credentials Clinical Instructor Signature Printed Name and Credentials
--- NOTE | 2019-06-09 11:24 | PT.OTN ---
Current Diagnoses Rectocele (06/09/19) Pelvic and perineal pain (06/09/19) Urgency of urination (06/09/19) Physical Therapy Treatment Note PT-OP-A Visit Information Start: 04/07/19 09:03 Freq: Status: Active Protocol: Document 06/09/19 11:20 [facility] (Rec: 06/09/19 11:24 [facility] [email or web address]) Out-Patient Physical Therapy Visit Information Visit Information Visit Type Treatment Note Visit Start Time 10:30 Visit Stop Time 11:15 Total Visit Minutes 45 Visit Number 6 PT-OP-B Current Condition Start: 04/07/19 09:03 Freq: Status: Active Protocol: Document 04/07/19 09:00 [facility] (Rec: 04/13/19 12:13 [facility] [email or web address]) Current Condition History of Current Condition Onset Date 2010 Current Complaints pelvic organ prolapse and c/o pelvic heavyness History of Current Condition Symptoms began after her hysterectomy and bladder sling repair in 2010 but really became a issue in January 2019. She reports that she hadn't felt her rectocele until that time. She is unsure what she can do for exercises at this time as she does not want to make her symptoms worse. She likes to run for exercise but it was after intercourse and then a run in the same day that she began having symptoms of the rectocele. She reports feeling as if her bladder sling is too tight and it limits her ability to fully void. She always feels as if she needs to empty her bladder and needs to go to the bathroom. She also reports feeling that her labia is sensitive and it is tender with intercourse. She reports she is not tender in the deep internal muscles but just the labia. Casper has a history of 4 vaginal deliveries and did have tearing 2 degree with her first delivery in 1998. Her last delivery was 2007. Treatment Goals Patient/Caregiver Goals Pt's goals include being given direction on what exercises she can do and strengthening to prevent any further prolapse Current Functional Impairments (Reported) Functional Limitations- Recreation/ decreased ability to engage in Hobbies the types of exercise she would like to including running, pain occasionally causes her to avoid sexual intercourse. PT-OP-C Subjective Start: 04/07/19 09:03 Freq: Status: Active Protocol: Document 06/09/19 11:20 [facility] (Rec: 06/09/19 11:24 [facility] [email or web address]) OP-PT Subjective Patient Comments Patient Comments Pt reports her muscles felt tired following the stimulation last visit. This lasted the rest of the day and the next PT-OP-F Manual Assessment Start: 04/07/19 09:03 Freq: Status: Active Protocol: Document 04/07/19 09:00 [facility] (Rec: 04/13/19 14:47 [facility] [email or web address]) Manual Assessments Soft Tissue Assessment Soft Tissue Mobility Assessment myofascial tightness across the abdominal fascia Left > right and suprapubic fascia. There is decreased mobility of the bladder and there are fascial restrictions surrounding the bladder Casper is very tight and has high tone in her obliques even at rest bilateral PT-OP-I Pelvic Floor Start: 04/07/19 09:03 Freq: Status: Active Protocol: Document 04/07/19 09:00 [facility] (Rec: 04/13/19 14:47 [facility] [email or web address]) Pelvic Floor Assessment Urine Pelvic Floor Surgery Yes Urinary Symptoms Urge Sensation,Incomplete Emptying,Pain Other Urinary Symptoms also c/o sensitivity and pain in the labia region B, will also feel as if she is swollen following intercourse Leaks Per Day 0 Pelvic Clock Pelvic Clock 12-3 Atrophy Pelvic Clock 3-6 Atrophy Pelvic Clock 6-9 Atrophy Pelvic Clock 9-12 Atrophy Prolapse Rectocele Grade 2 Contraction Ability Voluntary Contraction Weak Voluntary Relaxation Weak Manual Muscle Testing Left 2 Manual Muscle Testing Right 2 Manual Muscle Testing Anterior 2 Manual Muscle Testing Posterior 2 PT-OP-J Posture/Palpation/Skin Start: 04/07/19 09:03 Freq: Status: Active Protocol: Document 04/07/19 09:00 [facility] (Rec: 04/13/19 14:47 [facility] [email or web address]) Palpation Assessment Location One Palpation Location bladder/suprapubic fascia Palpation Findings Soft Tissue Tightness,Spasm, Muscle Guarding Palpation Details palpation over the bladder reproduces c/o urgency PT-OP-Q Treatments Start: 04/07/19 09:03 Freq: Status: Active Protocol: Document 06/09/19 11:20 [facility] (Rec: 06/09/19 11:24 [facility] [email or web address]) Therapeutic Exercises Supine Exercises 5 Supine Exercise Name quick pelvic floor contractions Reps/Minutes x 10 reps 1 Supine Exercise Name pt given 10 second hold and 10 second relaxation for HEP Side bilateral Reps/Minutes 2 x 10 reps per day Manual Therapy Treatment Soft Tissue Mobilization 4 Body Location Left side iliacus and oblique release 2 Body Location MFR to the subrapubic fascia and bladder and fascia around the rib cage 1 Body Location ILU massage over the colon and MFR to the abdominal wall Neuro Re-Education Treatment Other Activities 1 Details NMES Reps/Duration x 10 minutes Comments level 15 ,used for improved facilitation of the pelvic floor PT-OP-T Assessment and Plan Start: 04/07/19 09:03 Freq: Status: Active Protocol: Document 06/09/19 11:20 [facility] (Rec: 06/09/19 11:24 [facility] [email or web address]) Physical Therapy Assessment Assessment Summary Assessment resting tone wasd at 2 today but muscle strength 7.3 and max of 12.0 uv. Encouraged supine over the ball and iliopsoas stretching especially over the left side Physical Therapy Plan Frequency and Duration Frequency of Treatment 1x/Week Duration of Treatment 8 weeks Plan of Care Start Date 06/02/19 Plan of Care End Date 07/28/19 Therapeutic Interventions Therapeutic Interventions Home Exercise Program,Manual Therapy,Neuromuscular Re- education,Patient/Caregiver Education,Self-Care/Home Management,Soft Tissue Mobilization,Therapeutic Exercises Next Visit Focus/Plan Next Note Type Treatment Note Next Visit Plan continue with NMES for the pelvic floor, MFR over the left iliacus and oblique region and attachments to the pubic bone.
--- NOTE | 2019-06-16 13:34 | PT.OTN ---
Current Diagnoses Rectocele (06/16/19) Pelvic and perineal pain (06/16/19) Urgency of urination (06/16/19) Physical Therapy Treatment Note PT-OP-A Visit Information Start: 04/07/19 09:03 Freq: Status: Active Protocol: Document 06/16/19 13:19 [facility] (Rec: 06/16/19 13:34 [facility] [email or web address]) Out-Patient Physical Therapy Visit Information Visit Information Visit Type Treatment Note Visit Start Time 10:30 Visit Stop Time 11:25 Total Visit Minutes 55 Visit Number 7 Evaluation Information Evaluation Date 04/07/19 PT-OP-B Current Condition Start: 04/07/19 09:03 Freq: Status: Active Protocol: Document 04/07/19 09:00 [facility] (Rec: 04/13/19 12:13 [facility] [email or web address]) Current Condition History of Current Condition Onset Date 2010 Current Complaints pelvic organ prolapse and c/o pelvic heavyness History of Current Condition Symptoms began after her hysterectomy and bladder sling repair in 2010 but really became a issue in January 2019. She reports that she hadn't felt her rectocele until that time. She is unsure what she can do for exercises at this time as she does not want to make her symptoms worse. She likes to run for exercise but it was after intercourse and then a run in the same day that she began having symptoms of the rectocele. She reports feeling as if her bladder sling is too tight and it limits her ability to fully void. She always feels as if she needs to empty her bladder and needs to go to the bathroom. She also reports feeling that her labia is sensitive and it is tender with intercourse. She reports she is not tender in the deep internal muscles but just the labia. Casper has a history of 4 vaginal deliveries and did have tearing 2 degree with her first delivery in 1998. Her last delivery was 2007. Treatment Goals Patient/Caregiver Goals Pt's goals include being given direction on what exercises she can do and strengthening to prevent any further prolapse Current Functional Impairments (Reported) Functional Limitations- Recreation/ decreased ability to engage in Hobbies the types of exercise she would like to including running, pain occasionally causes her to avoid sexual intercourse. PT-OP-C Subjective Start: 04/07/19 09:03 Freq: Status: Active Protocol: Document 06/16/19 13:19 [facility] (Rec: 06/16/19 13:34 [facility] [email or web address]) OP-PT Subjective Patient Comments Patient Comments pt reports she feels half of the pressure in her pelvic floor she did when she started PT. She still hasn't tried running yet as she is afraid to make things worse. Also she still feels irritation in her labia. She has questions about her posture in standing PT-OP-F Manual Assessment Start: 04/07/19 09:03 Freq: Status: Active Protocol: Document 04/07/19 09:00 [facility] (Rec: 04/13/19 14:47 [facility] [email or web address]) Manual Assessments Soft Tissue Assessment Soft Tissue Mobility Assessment myofascial tightness across the abdominal fascia Left > right and suprapubic fascia. There is decreased mobility of the bladder and there are fascial restrictions surrounding the bladder Casper is very tight and has high tone in her obliques even at rest bilateral PT-OP-I Pelvic Floor Start: 04/07/19 09:03 Freq: Status: Active Protocol: Document 04/07/19 09:00 [facility] (Rec: 04/13/19 14:47 [facility] [email or web address]) Pelvic Floor Assessment Urine Pelvic Floor Surgery Yes Urinary Symptoms Urge Sensation,Incomplete Emptying,Pain Other Urinary Symptoms also c/o sensitivity and pain in the labia region B, will also feel as if she is swollen following intercourse Leaks Per Day 0 Pelvic Clock Pelvic Clock 12-3 Atrophy Pelvic Clock 3-6 Atrophy Pelvic Clock 6-9 Atrophy Pelvic Clock 9-12 Atrophy Prolapse Rectocele Grade 2 Contraction Ability Voluntary Contraction Weak Voluntary Relaxation Weak Manual Muscle Testing Left 2 Manual Muscle Testing Right 2 Manual Muscle Testing Anterior 2 Manual Muscle Testing Posterior 2 PT-OP-J Posture/Palpation/Skin Start: 04/07/19 09:03 Freq: Status: Active Protocol: Document 04/07/19 09:00 [facility] (Rec: 04/13/19 14:47 [facility] [email or web address]) Palpation Assessment Location One Palpation Location bladder/suprapubic fascia Palpation Findings Soft Tissue Tightness,Spasm, Muscle Guarding Palpation Details palpation over the bladder reproduces c/o urgency PT-OP-Q Treatments Start: 04/07/19 09:03 Freq: Status: Active Protocol: Document 06/16/19 13:19 [facility] (Rec: 06/16/19 13:34 [facility] [email or web address]) Therapeutic Exercises Supine Exercises 4 Supine Exercise Name iliopsoas stretch off edge of bed, 1/2 kneeling 1 Supine Exercise Name pt given 10 second hold and 10 second relaxation for HEP Side bilateral Reps/Minutes 2 x 10 reps per day Standing Exercises 2 Standing Exercise Name standing pelvic floor facilitation 1 Standing Exercise Name standing postural awareness Manual Therapy Treatment Soft Tissue Mobilization 4 Body Location Left side iliacus and oblique release 3 Body Location posterior pelvic floor release internally with MFR Comments left greater than right tightness still but much better contraction ability and improved ability to relax her pelvic floor 2 Body Location MFR to the subrapubic fascia and bladder and fascia around the rib cage Neuro Re-Education Treatment Other Activities 1 Details NMES Reps/Duration x 10 minutes Comments level 15 ,used for improved facilitation of the pelvic floor PT-OP-T Assessment and Plan Start: 04/07/19 09:03 Freq: Status: Active Protocol: Document 06/16/19 13:19 [facility] (Rec: 06/16/19 13:34 [facility] [email or web address]) Physical Therapy Assessment Assessment Summary Assessment average of 7.2 max of 12.1, left lateral wall not as tight and decreased presence of a rectocele now. Started standing pelvic floor facilitation today. This was difficult as Casper can not feel her pelvic floor in standing Physical Therapy Plan Frequency and Duration Frequency of Treatment 1x/Week Duration of Treatment 8 weeks Plan of Care Start Date 06/02/19 Plan of Care End Date 07/28/19 Therapeutic Interventions Therapeutic Interventions Home Exercise Program,Manual Therapy,Neuromuscular Re- education,Patient/Caregiver Education,Self-Care/Home Management,Soft Tissue Mobilization,Therapeutic Exercises Next Visit Focus/Plan Next Note Type Treatment Note Next Visit Plan continue to work on standing pelvic floor facilitation, add squats with pelvic floor activation
--- NOTE | 2019-06-23 14:04 | PT.OTN ---
Current Diagnoses Rectocele (06/23/19) Pelvic and perineal pain (06/23/19) Urgency of urination (06/23/19) Physical Therapy Treatment Note PT-OP-A Visit Information Start: 04/07/19 09:03 Freq: Status: Active Protocol: Document 06/23/19 10:30 [facility] (Rec: 06/23/19 14:04 [facility] [email or web address]) Out-Patient Physical Therapy Visit Information Visit Information Visit Type Treatment Note Visit Start Time 10:30 Visit Stop Time 11:25 Total Visit Minutes 55 Visit Number 8 PT-OP-B Current Condition Start: 04/07/19 09:03 Freq: Status: Active Protocol: Document 04/07/19 09:00 [facility] (Rec: 04/13/19 12:13 [facility] [email or web address]) Current Condition History of Current Condition Onset Date 2010 Current Complaints pelvic organ prolapse and c/o pelvic heavyness History of Current Condition Symptoms began after her hysterectomy and bladder sling repair in 2010 but really became a issue in January 2019. She reports that she hadn't felt her rectocele until that time. She is unsure what she can do for exercises at this time as she does not want to make her symptoms worse. She likes to run for exercise but it was after intercourse and then a run in the same day that she began having symptoms of the rectocele. She reports feeling as if her bladder sling is too tight and it limits her ability to fully void. She always feels as if she needs to empty her bladder and needs to go to the bathroom. She also reports feeling that her labia is sensitive and it is tender with intercourse. She reports she is not tender in the deep internal muscles but just the labia. Casper has a history of 4 vaginal deliveries and did have tearing 2 degree with her first delivery in 1998. Her last delivery was 2007. Treatment Goals Patient/Caregiver Goals Pt's goals include being given direction on what exercises she can do and strengthening to prevent any further prolapse Current Functional Impairments (Reported) Functional Limitations- Recreation/ decreased ability to engage in Hobbies the types of exercise she would like to including running, pain occasionally causes her to avoid sexual intercourse. PT-OP-C Subjective Start: 04/07/19 09:03 Freq: Status: Active Protocol: Document 06/23/19 10:30 [facility] (Rec: 06/23/19 14:04 [facility] [email or web address]) OP-PT Subjective Patient Comments Patient Comments Casper reports she has been feeling more pressure this week and more in the front region. She has also not felt as if she is having as many bowel movements as she had. PT-OP-F Manual Assessment Start: 04/07/19 09:03 Freq: Status: Active Protocol: Document 04/07/19 09:00 [facility] (Rec: 04/13/19 14:47 [facility] [email or web address]) Manual Assessments Soft Tissue Assessment Soft Tissue Mobility Assessment myofascial tightness across the abdominal fascia Left > right and suprapubic fascia. There is decreased mobility of the bladder and there are fascial restrictions surrounding the bladder Casper is very tight and has high tone in her obliques even at rest bilateral PT-OP-I Pelvic Floor Start: 04/07/19 09:03 Freq: Status: Active Protocol: Document 04/07/19 09:00 [facility] (Rec: 04/13/19 14:47 [facility] [email or web address]) Pelvic Floor Assessment Urine Pelvic Floor Surgery Yes Urinary Symptoms Urge Sensation,Incomplete Emptying,Pain Other Urinary Symptoms also c/o sensitivity and pain in the labia region B, will also feel as if she is swollen following intercourse Leaks Per Day 0 Pelvic Clock Pelvic Clock 12-3 Atrophy Pelvic Clock 3-6 Atrophy Pelvic Clock 6-9 Atrophy Pelvic Clock 9-12 Atrophy Prolapse Rectocele Grade 2 Contraction Ability Voluntary Contraction Weak Voluntary Relaxation Weak Manual Muscle Testing Left 2 Manual Muscle Testing Right 2 Manual Muscle Testing Anterior 2 Manual Muscle Testing Posterior 2 PT-OP-J Posture/Palpation/Skin Start: 04/07/19 09:03 Freq: Status: Active Protocol: Document 04/07/19 09:00 [facility] (Rec: 04/13/19 14:47 [facility] [email or web address]) Palpation Assessment Location One Palpation Location bladder/suprapubic fascia Palpation Findings Soft Tissue Tightness,Spasm, Muscle Guarding Palpation Details palpation over the bladder reproduces c/o urgency PT-OP-Q Treatments Start: 04/07/19 09:03 Freq: Status: Active Protocol: Document 06/23/19 10:30 [facility] (Rec: 06/23/19 14:04 [facility] [email or web address]) Therapeutic Exercises Supine Exercises 1 Supine Exercise Name pt given 10 second hold and 10 second relaxation for HEP Side bilateral Reps/Minutes 2 x 10 reps per day Other Exercises 5 Other Exercise Name supine stretch over the ball 4 Other Exercise Name prone over the ball to open up her pelvic floor and decrease pressure Manual Therapy Treatment Soft Tissue Mobilization 5 Body Location pelvic diaphragm mobilations 2 Body Location MFR to the subrapubic fascia and bladder and fascia around the rib cage 1 Body Location ILU massage over the colon and MFR to the abdominal wall PT-OP-T Assessment and Plan Start: 04/07/19 09:03 Freq: Status: Active Protocol: Document 06/23/19 10:30 [facility] (Rec: 06/23/19 14:04 [facility] [email or web address]) Physical Therapy Assessment Assessment Summary Assessment resting tone today much better , decreased left lateral wall guarding today, felt swollen in the urethral area and her rectum felt full today. She is being fitted for a pessary the end of this month in [place] Physical Therapy Plan Frequency and Duration Frequency of Treatment 1x/Week Duration of Treatment 8 weeks Plan of Care Start Date 06/02/19 Plan of Care End Date 07/28/19 Therapeutic Interventions Therapeutic Interventions Home Exercise Program,Manual Therapy,Neuromuscular Re- education,Patient/Caregiver Education,Self-Care/Home Management,Soft Tissue Mobilization,Therapeutic Exercises Next Visit Focus/Plan Next Note Type Treatment Note Next Visit Plan continue to work on standing pelvic floor facilitation, add squats with pelvic floor activation
--- NOTE | 2019-07-20 12:44 | PT.OTN ---
Current Diagnoses Rectocele (07/20/19) Pelvic and perineal pain (07/20/19) Urgency of urination (07/20/19) Physical Therapy Treatment Note PT-OP-A Visit Information Start: 04/07/19 09:03 Freq: Status: Active Protocol: Document 07/20/19 11:13 [facility] (Rec: 07/20/19 11:23 [facility] [id number]) Out-Patient Physical Therapy Visit Information Visit Information Visit Type Treatment Note Visit Start Time 11:15 Visit Stop Time 12:00 Total Visit Minutes 45 Visit Number 9 PT-OP-B Current Condition Start: 04/07/19 09:03 Freq: Status: Active Protocol: Document 04/07/19 09:00 [facility] (Rec: 04/13/19 12:13 [facility] [email or web address]) Current Condition History of Current Condition Onset Date 2010 Current Complaints pelvic organ prolapse and c/o pelvic heavyness History of Current Condition Symptoms began after her hysterectomy and bladder sling repair in 2010 but really became a issue in January 2019. She reports that she hadn't felt her rectocele until that time. She is unsure what she can do for exercises at this time as she does not want to make her symptoms worse. She likes to run for exercise but it was after intercourse and then a run in the same day that she began having symptoms of the rectocele. She reports feeling as if her bladder sling is too tight and it limits her ability to fully void. She always feels as if she needs to empty her bladder and needs to go to the bathroom. She also reports feeling that her labia is sensitive and it is tender with intercourse. She reports she is not tender in the deep internal muscles but just the labia. Casper has a history of 4 vaginal deliveries and did have tearing 2 degree with her first delivery in 1998. Her last delivery was 2007. Treatment Goals Patient/Caregiver Goals Pt's goals include being given direction on what exercises she can do and strengthening to prevent any further prolapse Current Functional Impairments (Reported) Functional Limitations- Recreation/ decreased ability to engage in Hobbies the types of exercise she would like to including running, pain occasionally causes her to avoid sexual intercourse. PT-OP-C Subjective Start: 04/07/19 09:03 Freq: Status: Active Protocol: Document 07/20/19 11:13 [facility] (Rec: 07/20/19 11:23 [facility] [id number]) OP-PT Subjective Patient Comments Patient Comments Casper notes she is doing a little better from her last visit. Her pelvic pressure has decreased some and there is a slight improvement with her labia pain. She has her Pessary fitting in July. PT-OP-F Manual Assessment Start: 04/07/19 09:03 Freq: Status: Active Protocol: Document 04/07/19 09:00 [facility] (Rec: 04/13/19 14:47 [facility] [email or web address]) Manual Assessments Soft Tissue Assessment Soft Tissue Mobility Assessment myofascial tightness across the abdominal fascia Left > right and suprapubic fascia. There is decreased mobility of the bladder and there are fascial restrictions surrounding the bladder Casper is very tight and has high tone in her obliques even at rest bilateral PT-OP-I Pelvic Floor Start: 04/07/19 09:03 Freq: Status: Active Protocol: Document 04/07/19 09:00 [facility] (Rec: 04/13/19 14:47 [facility] [email or web address]) Pelvic Floor Assessment Urine Pelvic Floor Surgery Yes Urinary Symptoms Urge Sensation,Incomplete Emptying,Pain Other Urinary Symptoms also c/o sensitivity and pain in the labia region B, will also feel as if she is swollen following intercourse Leaks Per Day 0 Pelvic Clock Pelvic Clock 12-3 Atrophy Pelvic Clock 3-6 Atrophy Pelvic Clock 6-9 Atrophy Pelvic Clock 9-12 Atrophy Prolapse Rectocele Grade 2 Contraction Ability Voluntary Contraction Weak Voluntary Relaxation Weak Manual Muscle Testing Left 2 Manual Muscle Testing Right 2 Manual Muscle Testing Anterior 2 Manual Muscle Testing Posterior 2 PT-OP-J Posture/Palpation/Skin Start: 04/07/19 09:03 Freq: Status: Active Protocol: Document 04/07/19 09:00 [facility] (Rec: 04/13/19 14:47 [facility] [email or web address]) Palpation Assessment Location One Palpation Location bladder/suprapubic fascia Palpation Findings Soft Tissue Tightness,Spasm, Muscle Guarding Palpation Details palpation over the bladder reproduces c/o urgency PT-OP-Q Treatments Start: 04/07/19 09:03 Freq: Status: Active Protocol: Document 07/20/19 12:31 [facility] (Rec: 07/20/19 12:44 [facility] [email or web address]) Therapeutic Exercises Other Exercises 8 Other Exercise Name brooke pose 7 Other Exercise Name quadraped rock backs opening up the sitting bones 6 Other Exercise Name down dog stretch Comments emphasis on opening up the sitting bones Manual Therapy Treatment Soft Tissue Mobilization 5 Body Location pelvic diaphragm mobilations 4 Body Location Left side iliacus and oblique release 3 Body Location posterior pelvic floor release internally with MFR Comments also worked externally with releasing from the gluteals with hip flexion 2 Body Location MFR to the subrapubic fascia and bladder and fascia around the rib cage 1 Body Location ILU massage over the colon and MFR to the abdominal wall PT-OP-T Assessment and Plan Start: 04/07/19 09:03 Freq: Status: Active Protocol: Document 07/20/19 12:31 [facility] (Rec: 07/20/19 12:44 [facility] [email or web address]) Physical Therapy Assessment Assessment Summary Assessment improved pelvic floor facilitation today and decreased rectocele felt today . Still tight in the posterior pelvic floor. Worked on hip flexion with pelvic floor release today. Added in down dog modified with a chair today to open up at the sitting bones Physical Therapy Plan Frequency and Duration Frequency of Treatment 1x/Week Duration of Treatment 8 weeks Plan of Care Start Date 06/02/19 Plan of Care End Date 07/28/19 Therapeutic Interventions Therapeutic Interventions Home Exercise Program,Manual Therapy,Neuromuscular Re- education,Patient/Caregiver Education,Self-Care/Home Management,Soft Tissue Mobilization,Therapeutic Exercises Next Visit Focus/Plan Next Note Type Treatment Note Next Visit Plan reassess EMG biofeedback next visit as it wasn't done today.
--- NOTE | 2019-07-27 11:15 | PT.OTN ---
Current Diagnoses Rectocele (07/27/19) Pelvic and perineal pain (07/27/19) Urgency of urination (07/27/19) Physical Therapy Treatment Note PT-OP-A Visit Information Start: 04/07/19 09:03 Freq: Status: Active Protocol: Document 07/27/19 10:30 [facility] (Rec: 08/01/19 11:55 [facility] [email or web address]) Out-Patient Physical Therapy Visit Information Visit Information Visit Type Treatment Note Visit Start Time 10:30 Visit Stop Time 11:15 Total Visit Minutes 45 Visit Number 10 PT-OP-B Current Condition Start: 04/07/19 09:03 Freq: Status: Active Protocol: Document 04/07/19 09:00 [facility] (Rec: 04/13/19 12:13 [facility] [email or web address]) Current Condition History of Current Condition Onset Date 2010 Current Complaints pelvic organ prolapse and c/o pelvic heavyness History of Current Condition Symptoms began after her hysterectomy and bladder sling repair in 2010 but really became a issue in January 2019. She reports that she hadn't felt her rectocele until that time. She is unsure what she can do for exercises at this time as she does not want to make her symptoms worse. She likes to run for exercise but it was after intercourse and then a run in the same day that she began having symptoms of the rectocele. She reports feeling as if her bladder sling is too tight and it limits her ability to fully void. She always feels as if she needs to empty her bladder and needs to go to the bathroom. She also reports feeling that her labia is sensitive and it is tender with intercourse. She reports she is not tender in the deep internal muscles but just the labia. Casper has a history of 4 vaginal deliveries and did have tearing 2 degree with her first delivery in 1998. Her last delivery was 2007. Treatment Goals Patient/Caregiver Goals Pt's goals include being given direction on what exercises she can do and strengthening to prevent any further prolapse Current Functional Impairments (Reported) Functional Limitations- Recreation/ decreased ability to engage in Hobbies the types of exercise she would like to including running, pain occasionally causes her to avoid sexual intercourse. PT-OP-C Subjective Start: 04/07/19 09:03 Freq: Status: Active Protocol: Document 07/27/19 10:30 [facility] (Rec: 08/01/19 11:55 [facility] [email or web address]) OP-PT Subjective Patient Comments Patient Comments pt reports the manual work done last visit helped some with improved voiding. She hasn't been able to do her stretches as much this week due to low back discomfort PT-OP-F Manual Assessment Start: 04/07/19 09:03 Freq: Status: Active Protocol: Document 04/07/19 09:00 [facility] (Rec: 04/13/19 14:47 [facility] [email or web address]) Manual Assessments Soft Tissue Assessment Soft Tissue Mobility Assessment myofascial tightness across the abdominal fascia Left > right and suprapubic fascia. There is decreased mobility of the bladder and there are fascial restrictions surrounding the bladder Casper is very tight and has high tone in her obliques even at rest bilateral PT-OP-I Pelvic Floor Start: 04/07/19 09:03 Freq: Status: Active Protocol: Document 04/07/19 09:00 [facility] (Rec: 04/13/19 14:47 [facility] [email or web address]) Pelvic Floor Assessment Urine Pelvic Floor Surgery Yes Urinary Symptoms Urge Sensation,Incomplete Emptying,Pain Other Urinary Symptoms also c/o sensitivity and pain in the labia region B, will also feel as if she is swollen following intercourse Leaks Per Day 0 Pelvic Clock Pelvic Clock 12-3 Atrophy Pelvic Clock 3-6 Atrophy Pelvic Clock 6-9 Atrophy Pelvic Clock 9-12 Atrophy Prolapse Rectocele Grade 2 Contraction Ability Voluntary Contraction Weak Voluntary Relaxation Weak Manual Muscle Testing Left 2 Manual Muscle Testing Right 2 Manual Muscle Testing Anterior 2 Manual Muscle Testing Posterior 2 PT-OP-J Posture/Palpation/Skin Start: 04/07/19 09:03 Freq: Status: Active Protocol: Document 04/07/19 09:00 [facility] (Rec: 04/13/19 14:47 [facility] [email or web address]) Palpation Assessment Location One Palpation Location bladder/suprapubic fascia Palpation Findings Soft Tissue Tightness,Spasm, Muscle Guarding Palpation Details palpation over the bladder reproduces c/o urgency PT-OP-Q Treatments Start: 04/07/19 09:03 Freq: Status: Active Protocol: Document 07/27/19 10:30 [facility] (Rec: 08/01/19 11:55 [facility] [email or web address]) Therapeutic Exercises Supine Exercises 2 Supine Exercise Name supine diaphragmatic breathing Comments worked on inhale x 4, hold x 4 seconds, exhale x 4 1 Supine Exercise Name pt given 10 second hold and 10 second relaxation for HEP Side bilateral Reps/Minutes 2 x 10 reps per day Manual Therapy Treatment Soft Tissue Mobilization 5 Body Location pelvic diaphragm mobilations 3 Body Location posterior pelvic floor release internally with MFR Comments also worked externally with releasing from the gluteals with hip flexion 2 Body Location MFR to the subrapubic fascia and bladder and fascia around the rib cage 1 Body Location ILU massage over the colon and MFR to the abdominal wall PT-OP-T Assessment and Plan Start: 04/07/19 09:03 Freq: Status: Active Protocol: Document 07/27/19 10:30 [facility] (Rec: 08/01/19 11:55 [facility] [email or web address]) Physical Therapy Assessment Assessment Summary Assessment resting tone a bit higher today but Casper hadn't been able to do her stretches all week due to low back discomfort. Review diaphragmatic breathing next visit and low back stretches. Check iliopsoas length Physical Therapy Plan Frequency and Duration Frequency of Treatment 1x/Week Duration of Treatment 8 weeks Plan of Care Start Date 06/02/19 Plan of Care End Date 07/28/19 Therapeutic Interventions Therapeutic Interventions Home Exercise Program,Manual Therapy,Neuromuscular Re- education,Patient/Caregiver Education,Self-Care/Home Management,Soft Tissue Mobilization,Therapeutic Exercises Next Visit Focus/Plan Next Note Type Progress Note Next Visit Plan Objective measures for [place] next visit
--- NOTE | 2019-08-10 14:20 | PT.OTN ---
Current Diagnoses Rectocele (08/10/19) Pelvic and perineal pain (08/10/19) Urgency of urination (08/10/19) Physical Therapy Treatment Note PT-OP-A Visit Information Start: 04/07/19 09:03 Freq: Status: Active Protocol: Document 08/10/19 14:01 [facility] (Rec: 08/10/19 14:18 [facility] [email or web address]) Out-Patient Physical Therapy Visit Information Visit Information Visit Type Treatment Note Visit Start Time 10:30 Visit Stop Time 11:15 Total Visit Minutes 45 Visit Number 11 PT-OP-B Current Condition Start: 04/07/19 09:03 Freq: Status: Active Protocol: Document 04/07/19 09:00 [facility] (Rec: 04/13/19 12:13 [facility] [email or web address]) Current Condition History of Current Condition Onset Date 2010 Current Complaints pelvic organ prolapse and c/o pelvic heavyness History of Current Condition Symptoms began after her hysterectomy and bladder sling repair in 2010 but really became a issue in January 2019. She reports that she hadn't felt her rectocele until that time. She is unsure what she can do for exercises at this time as she does not want to make her symptoms worse. She likes to run for exercise but it was after intercourse and then a run in the same day that she began having symptoms of the rectocele. She reports feeling as if her bladder sling is too tight and it limits her ability to fully void. She always feels as if she needs to empty her bladder and needs to go to the bathroom. She also reports feeling that her labia is sensitive and it is tender with intercourse. She reports she is not tender in the deep internal muscles but just the labia. Casper has a history of 4 vaginal deliveries and did have tearing 2 degree with her first delivery in 1998. Her last delivery was 2007. Treatment Goals Patient/Caregiver Goals Pt's goals include being given direction on what exercises she can do and strengthening to prevent any further prolapse Current Functional Impairments (Reported) Functional Limitations- Recreation/ decreased ability to engage in Hobbies the types of exercise she would like to including running, pain occasionally causes her to avoid sexual intercourse. PT-OP-C Subjective Start: 04/07/19 09:03 Freq: Status: Active Protocol: Document 08/10/19 14:01 [facility] (Rec: 08/10/19 14:18 [facility] [email or web address]) OP-PT Subjective Patient Comments Patient Comments pt reports she used the disposable pessary and felt it really helped her. She is seeing her doctor tomorrow in [place] tomorrow to discuss pessary options PT-OP-F Manual Assessment Start: 04/07/19 09:03 Freq: Status: Active Protocol: Document 04/07/19 09:00 [facility] (Rec: 04/13/19 14:47 [facility] [email or web address]) Manual Assessments Soft Tissue Assessment Soft Tissue Mobility Assessment myofascial tightness across the abdominal fascia Left > right and suprapubic fascia. There is decreased mobility of the bladder and there are fascial restrictions surrounding the bladder Casper is very tight and has high tone in her obliques even at rest bilateral PT-OP-I Pelvic Floor Start: 04/07/19 09:03 Freq: Status: Active Protocol: Document 04/07/19 09:00 [facility] (Rec: 04/13/19 14:47 [facility] [email or web address]) Pelvic Floor Assessment Urine Pelvic Floor Surgery Yes Urinary Symptoms Urge Sensation,Incomplete Emptying,Pain Other Urinary Symptoms also c/o sensitivity and pain in the labia region B, will also feel as if she is swollen following intercourse Leaks Per Day 0 Pelvic Clock Pelvic Clock 12-3 Atrophy Pelvic Clock 3-6 Atrophy Pelvic Clock 6-9 Atrophy Pelvic Clock 9-12 Atrophy Prolapse Rectocele Grade 2 Contraction Ability Voluntary Contraction Weak Voluntary Relaxation Weak Manual Muscle Testing Left 2 Manual Muscle Testing Right 2 Manual Muscle Testing Anterior 2 Manual Muscle Testing Posterior 2 PT-OP-J Posture/Palpation/Skin Start: 04/07/19 09:03 Freq: Status: Active Protocol: Document 04/07/19 09:00 [facility] (Rec: 04/13/19 14:47 [facility] [email or web address]) Palpation Assessment Location One Palpation Location bladder/suprapubic fascia Palpation Findings Soft Tissue Tightness,Spasm, Muscle Guarding Palpation Details palpation over the bladder reproduces c/o urgency PT-OP-Q Treatments Start: 04/07/19 09:03 Freq: Status: Active Protocol: Document 08/10/19 14:18 [facility] (Rec: 08/10/19 14:20 [facility] [email or web address]) Therapeutic Exercises Supine Exercises 2 Supine Exercise Name supine diaphragmatic breathing Comments worked on inhale x 4, hold x 4 seconds, exhale x 4 1 Supine Exercise Name pt given 10 second hold and 10 second relaxation for HEP Side bilateral Reps/Minutes 2 x 10 reps per day Manual Therapy Treatment Soft Tissue Mobilization 3 Body Location posterior pelvic floor release internally with MFR Comments also worked externally with releasing from the gluteals with hip flexion 2 Body Location MFR to the subrapubic fascia and bladder and fascia around the rib cage 1 Body Location ILU massage over the colon and MFR to the abdominal wall PT-OP-T Assessment and Plan Start: 04/07/19 09:03 Freq: Status: Active Protocol: Document 08/10/19 14:01 [facility] (Rec: 08/10/19 14:18 [facility] [email or web address]) Physical Therapy Assessment Goals Four Impairment Casper lacks a home exercise program for pelvic floor muscle strengthening Nursing Home Goal (LTG) Casper is independent with a home program for pelvic floor strengthening and endurance training Excellent progress, we are contining to modify and increase this program LTG Duration 8 weeks Three Impairment myosfacial restrictions in the suprapubic fascia Lens Finisher Goal (LTG) There is improved mobility of the fascial tissue in the subrapubic fascia, over the bladder, and abdominal wall creating more space for the bladder to expand and reducing downward pressure on the pelvic organs. Casper reports decreased c/o urgency Excellent progress LTG Duration 8 weeks Two Impairment c/o swelling and heaviness in the pelvic floor especially following running Short Term Goal (STG) Casper is educated on techniques to elevate her pelvis to decrease swelling and body coverer training to avoid downward pressure GOAL MET STG Duration 4 weeks Lens Finisher Goal (LTG) With strengthening there is a overall reduction in c/o pelvic pressure and swelling Casper has started to do more activities such as running and pelvic pressure does return with these higher level activities. A pessary may be very helpful. LTG Duration 8 weeks One Impairment pelvic floor weakness with rectocele Nursing Home Goal (LTG) Casper is able to improve strength of the levator ani from 2/5 to 4/5 MMT for improved support of her pelvic organs EXCELLENT PROGRESS LTG Duration 8 weeks Assessment Summary Assessment Casper continues to show progress. She has recently wanted to try more activities such as running and notes pelvic pressure increases following. I did give her a disposable poise impressa bladder support to try and she felt this really helped her. A pessary may be very helpful for her. She is showing improved resting tone of the pelvic floor today, Casper is relaxing better now with manual therapy techniques. She would like to continue her PT treatments and progress towards more upright dynamic exercises Physical Therapy Plan Frequency and Duration Frequency of Treatment 1x/Week Duration of Treatment 8 weeks Plan of Care Start Date 07/28/19 Plan of Care End Date 09/29/19 Therapeutic Interventions Therapeutic Interventions Home Exercise Program,Manual Therapy,Neuromuscular Re- education,Patient/Caregiver Education,Self-Care/Home Management,Soft Tissue Mobilization,Therapeutic Exercises Next Visit Focus/Plan Next Note Type Treatment Note Next Visit Plan Continue progressing pelvic floor strength, recheck manual pelvic floor strength next visit
--- NOTE | 2019-08-10 14:21 | PT.OPPOC ---
Current Diagnoses Rectocele (08/10/19) Pelvic and perineal pain (08/10/19) Urgency of urination (08/10/19) Visit Care Team Role Provider Type Deepti Kerr MD Primary Care Provider Non-Staff Specialty: Family Practice Address: [facility] [place], [address] Email: SYLVESTER Vivar Attending Provider Non-Staff Specialty: Medical Address: [address] [place] [address], [id number] Email: Plan Of Care PT-OP-T Assessment and Plan Start: 04/07/19 09:03 Freq: Status: Active Protocol: Document 08/10/19 14:01 [facility] (Rec: 08/10/19 14:18 [facility] [email or web address]) Physical Therapy Assessment Goals Four Impairment Casper lacks a home exercise program for pelvic floor muscle strengthening Shelter Goal (LTG) Casper is independent with a home program for pelvic floor strengthening and endurance training Excellent progress, we are continuing to modify and increase this program LTG Duration 8 weeks Three Impairment myosfacial restrictions in the suprapubic fascia Shelter Goal (LTG) There is improved mobility of the fascial tissue in the subrapubic fascia, over the bladder, and abdominal wall creating more space for the bladder to expand and reducing downward pressure on the pelvic organs. 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 A pessary may be very helpful. LTG Duration 8 weeks One Impairment pelvic floor weakness with rectocele Shelter Goal (LTG) Casper is able to improve strength of the levator ani from 2/5 to 4/5 MMT for improved support of her pelvic organs EXCELLENT PROGRESS LTG Duration 8 weeks Assessment Summary Assessment Casper continues to show progress. She has recently wanted to try more activities such as running and notes pelvic pressure increases following. I did give her a disposable poise impressa bladder support to try and she felt this really helped her. A pessary may be very helpful for her. She is showing improved resting tone of the pelvic floor today, Casper is relaxing better now with manual therapy techniques. She would like to continue her PT treatments and progress towards more upright dynamic exercises Physical Therapy Plan Frequency and Duration Frequency of Treatment 1x/Week Duration of Treatment 8 weeks Plan of Care Start Date 07/28/19 Plan of Care End Date 09/29/19 Therapeutic Interventions Therapeutic Interventions Home Exercise Program,Manual Therapy,Neuromuscular Re- education,Patient/Caregiver Education,Self-Care/Home Management,Soft Tissue Mobilization,Therapeutic Exercises Next Visit Focus/Plan Next Note Type Treatment Note Next Visit Plan Continue progressing pelvic floor strength, recheck manual pelvic floor strength next visit Plan of Care Dates Plan of Care Start Date 07/28/19 Plan of Care End Date 09/29/19
--- NOTE | 2019-08-25 15:09 | PT.OTN ---
Current Diagnoses Rectocele (08/25/19) Pelvic and perineal pain (08/25/19) Urgency of urination (08/25/19) Physical Therapy Treatment Note PT-OP-A Visit Information Start: 04/07/19 09:03 Freq: Status: Active Protocol: Document 08/25/19 15:01 [facility] (Rec: 08/25/19 15:08 [facility] [email or web address]) Out-Patient Physical Therapy Visit Information Visit Information Visit Type Treatment Note Visit Start Time 10:30 Visit Stop Time 11:15 Total Visit Minutes 45 Visit Number 12 PT-OP-B Current Condition Start: 04/07/19 09:03 Freq: Status: Active Protocol: Document 04/07/19 09:00 [facility] (Rec: 04/13/19 12:13 [facility] [email or web address]) Current Condition History of Current Condition Onset Date 2010 Current Complaints pelvic organ prolapse and c/o pelvic heavyness History of Current Condition Symptoms began after her hysterectomy and bladder sling repair in 2010 but really became a issue in January 2019. She reports that she hadn't felt her rectocele until that time. She is unsure what she can do for exercises at this time as she does not want to make her symptoms worse. She likes to run for exercise but it was after intercourse and then a run in the same day that she began having symptoms of the rectocele. She reports feeling as if her bladder sling is too tight and it limits her ability to fully void. She always feels as if she needs to empty her bladder and needs to go to the bathroom. She also reports feeling that her labia is sensitive and it is tender with intercourse. She reports she is not tender in the deep internal muscles but just the labia. Casper has a history of 4 vaginal deliveries and did have tearing 2 degree with her first delivery in 1998. Her last delivery was 2007. Treatment Goals Patient/Caregiver Goals Pt's goals include being given direction on what exercises she can do and strengthening to prevent any further prolapse Current Functional Impairments (Reported) Functional Limitations- Recreation/ decreased ability to engage in Hobbies the types of exercise she would like to including running, pain occasionally causes her to avoid sexual intercourse. PT-OP-C Subjective Start: 04/07/19 09:03 Freq: Status: Active Protocol: Document 08/25/19 15:01 [facility] (Rec: 08/25/19 15:08 [facility] [email or web address]) OP-PT Subjective Patient Comments Patient Comments pt reports she saw the doctor for the pessary and did get one. However she was unable to void with it in and it took her a great amount of time to remove it. She decided to go with the temporary poise ones instead. Overall pressure is better, she isn't able to run but is riding her stationary bike PT-OP-F Manual Assessment Start: 04/07/19 09:03 Freq: Status: Active Protocol: Document 04/07/19 09:00 [facility] (Rec: 04/13/19 14:47 [facility] [email or web address]) Manual Assessments Soft Tissue Assessment Soft Tissue Mobility Assessment myofascial tightness across the abdominal fascia Left > right and suprapubic fascia. There is decreased mobility of the bladder and there are fascial restrictions surrounding the bladder Casper is very tight and has high tone in her obliques even at rest bilateral PT-OP-I Pelvic Floor Start: 04/07/19 09:03 Freq: Status: Active Protocol: Document 04/07/19 09:00 [facility] (Rec: 04/13/19 14:47 [facility] [email or web address]) Pelvic Floor Assessment Urine Pelvic Floor Surgery Yes Urinary Symptoms Urge Sensation,Incomplete Emptying,Pain Other Urinary Symptoms also c/o sensitivity and pain in the labia region B, will also feel as if she is swollen following intercourse Leaks Per Day 0 Pelvic Clock Pelvic Clock 12-3 Atrophy Pelvic Clock 3-6 Atrophy Pelvic Clock 6-9 Atrophy Pelvic Clock 9-12 Atrophy Prolapse Rectocele Grade 2 Contraction Ability Voluntary Contraction Weak Voluntary Relaxation Weak Manual Muscle Testing Left 2 Manual Muscle Testing Right 2 Manual Muscle Testing Anterior 2 Manual Muscle Testing Posterior 2 PT-OP-J Posture/Palpation/Skin Start: 04/07/19 09:03 Freq: Status: Active Protocol: Document 04/07/19 09:00 [facility] (Rec: 04/13/19 14:47 [facility] [email or web address]) Palpation Assessment Location One Palpation Location bladder/suprapubic fascia Palpation Findings Soft Tissue Tightness,Spasm, Muscle Guarding Palpation Details palpation over the bladder reproduces c/o urgency PT-OP-Q Treatments Start: 04/07/19 09:03 Freq: Status: Active Protocol: Document 08/25/19 15:01 [facility] (Rec: 08/25/19 15:08 [facility] [email or web address]) Therapeutic Exercises Standing Exercises 3 Standing Exercise Name standing squats with pelvic floor engagement Comments pt given cues on avoiding shifting her hips forward on return to stand 2 Standing Exercise Name standing pelvic floor facilitation Comments both leaning over the counter top and with back against the wall 1 Standing Exercise Name standing postural awareness Comments seating the femoral head in standing Manual Therapy Treatment Soft Tissue Mobilization 2 Body Location MFR to the subrapubic fascia and bladder and fascia around the rib cage 1 Body Location ILU massage over the colon and MFR to the abdominal wall PT-OP-T Assessment and Plan Start: 04/07/19 09:03 Freq: Status: Active Protocol: Document 08/25/19 15:01 [facility] (Rec: 08/25/19 15:08 [facility] [email or web address]) Physical Therapy Assessment Assessment Summary Assessment Casper was able to feel her pelvic floor in standing today when her hips were aligned with the cues to seat her femoral heads Physical Therapy Plan Frequency and Duration Frequency of Treatment 1x/Week Duration of Treatment 8 weeks Plan of Care Start Date 07/28/19 Plan of Care End Date 09/29/19 Therapeutic Interventions Therapeutic Interventions Home Exercise Program,Manual Therapy,Neuromuscular Re- education,Patient/Caregiver Education,Self-Care/Home Management,Soft Tissue Mobilization,Therapeutic Exercises Next Visit Focus/Plan Next Note Type Treatment Note Next Visit Plan continue progressing upright strengthening
--- NOTE | 2019-09-01 11:52 | PT.OTN ---
Current Diagnoses Rectocele (09/01/19) Pelvic and perineal pain (09/01/19) Urgency of urination (09/01/19) Physical Therapy Treatment Note PT-OP-A Visit Information Start: 04/07/19 09:03 Freq: Status: Active Protocol: Document 09/01/19 11:30 [facility] (Rec: 09/01/19 11:52 [facility] [email or web address]) Out-Patient Physical Therapy Visit Information Visit Information Visit Type Treatment Note Visit Start Time 10:30 Visit Stop Time 11:15 Total Visit Minutes 45 Visit Number 13 PT-OP-B Current Condition Start: 04/07/19 09:03 Freq: Status: Active Protocol: Document 04/07/19 09:00 [facility] (Rec: 04/13/19 12:13 [facility] [email or web address]) Current Condition History of Current Condition Onset Date 2010 Current Complaints pelvic organ prolapse and c/o pelvic heavyness History of Current Condition Symptoms began after her hysterectomy and bladder sling repair in 2010 but really became a issue in January 2019. She reports that she hadn't felt her rectocele until that time. She is unsure what she can do for exercises at this time as she does not want to make her symptoms worse. She likes to run for exercise but it was after intercourse and then a run in the same day that she began having symptoms of the rectocele. She reports feeling as if her bladder sling is too tight and it limits her ability to fully void. She always feels as if she needs to empty her bladder and needs to go to the bathroom. She also reports feeling that her labia is sensitive and it is tender with intercourse. She reports she is not tender in the deep internal muscles but just the labia. Casper has a history of 4 vaginal deliveries and did have tearing 2 degree with her first delivery in 1998. Her last delivery was 2007. Treatment Goals Patient/Caregiver Goals Pt's goals include being given direction on what exercises she can do and strengthening to prevent any further prolapse Current Functional Impairments (Reported) Functional Limitations- Recreation/ decreased ability to engage in Hobbies the types of exercise she would like to including running, pain occasionally causes her to avoid sexual intercourse. PT-OP-C Subjective Start: 04/07/19 09:03 Freq: Status: Active Protocol: Document 09/01/19 11:30 [facility] (Rec: 09/01/19 11:52 [facility] [email or web address]) OP-PT Subjective Patient Comments Patient Comments pt reports she is doing her stretches and some days are better than others with her pressure. She has been working on the standing pelvic floor contractions and it is much harder to do. PT-OP-F Manual Assessment Start: 04/07/19 09:03 Freq: Status: Active Protocol: Document 04/07/19 09:00 [facility] (Rec: 04/13/19 14:47 [facility] [email or web address]) Manual Assessments Soft Tissue Assessment Soft Tissue Mobility Assessment myofascial tightness across the abdominal fascia Left > right and suprapubic fascia. There is decreased mobility of the bladder and there are fascial restrictions surrounding the bladder Casper is very tight and has high tone in her obliques even at rest bilateral PT-OP-I Pelvic Floor Start: 04/07/19 09:03 Freq: Status: Active Protocol: Document 04/07/19 09:00 [facility] (Rec: 04/13/19 14:47 [facility] [email or web address]) Pelvic Floor Assessment Urine Pelvic Floor Surgery Yes Urinary Symptoms Urge Sensation,Incomplete Emptying,Pain Other Urinary Symptoms also c/o sensitivity and pain in the labia region B, will also feel as if she is swollen following intercourse Leaks Per Day 0 Pelvic Clock Pelvic Clock 12-3 Atrophy Pelvic Clock 3-6 Atrophy Pelvic Clock 6-9 Atrophy Pelvic Clock 9-12 Atrophy Prolapse Rectocele Grade 2 Contraction Ability Voluntary Contraction Weak Voluntary Relaxation Weak Manual Muscle Testing Left 2 Manual Muscle Testing Right 2 Manual Muscle Testing Anterior 2 Manual Muscle Testing Posterior 2 PT-OP-J Posture/Palpation/Skin Start: 04/07/19 09:03 Freq: Status: Active Protocol: Document 04/07/19 09:00 [facility] (Rec: 04/13/19 14:47 [facility] [email or web address]) Palpation Assessment Location One Palpation Location bladder/suprapubic fascia Palpation Findings Soft Tissue Tightness,Spasm, Muscle Guarding Palpation Details palpation over the bladder reproduces c/o urgency PT-OP-Q Treatments Start: 04/07/19 09:03 Freq: Status: Active Protocol: Document 09/01/19 11:30 [facility] (Rec: 09/01/19 11:52 [facility] [email or web address]) Therapeutic Exercises Standing Exercises 3 Standing Exercise Name standing squats with pelvic floor engagement Comments pt given cues on avoiding shifting her hips forward on return to stand 2 Standing Exercise Name standing pelvic floor facilitation Comments both leaning over the counter top and with back against the wall 1 Standing Exercise Name standing postural awareness Comments seating the femoral head in standing Manual Therapy Treatment Soft Tissue Mobilization 3 Body Location external pelvic floor release medial to the ischial tuberosity B Comments also worked externally with releasing from the gluteals with hip flexion 2 Body Location MFR to the subrapubic fascia and bladder and fascia around the rib cage 1 Body Location ILU massage over the colon and MFR to the abdominal wall PT-OP-T Assessment and Plan Start: 04/07/19 09:03 Freq: Status: Active Protocol: Document 09/01/19 11:30 [facility] (Rec: 09/01/19 11:52 [facility] [email or web address]) Physical Therapy Assessment Goals Four Impairment Difficulty sustaining a pelvic floor contraction in stanind greater than 5 Programmer Developer Goal (LTG) Casper is independent with a standing and functional exercise program including pelvic floor engagement with squats and functional movements. She is able to sustain a pelvic floor contraction in standing for 10 seconds LTG Duration 8 weeks Three Impairment myosfacial restrictions in the suprapubic fascia Programmer Developer Goal (LTG) There is improved mobility of the fascial tissue in the subrapubic fascia, over the bladder, and abdominal wall creating more space for the bladder to expand and reducing downward pressure on the pelvic organs. Casper reports decreased c/o urgency Excellent progress Two Impairment c/o swelling and heaviness in the pelvic floor especially following running Short Term Goal (STG) Casper is educated on techniques to elevate her pelvis to decrease swelling and laboratory mechanic helper training to avoid downward pressure GOAL MET Long-Term Goal (LTG) With strengthening there is a overall reduction in c/o pelvic pressure and swelling Casper has started to do more activities such as running and pelvic pressure does return with these higher level activities. She did try a pessary but did not like it. She is currently trying the impressa poise temporary bladder supports with higher level activity. One Impairment pelvic floor weakness with rectocele Long-Term Goal (LTG) Casper is able to improve strength of the levator ani from 2/5 to 4/5 MMT for improved support of her pelvic organs EXCELLENT PROGRESS Assessment Summary Assessment Casper is working towards more standing postures with pelvic floor engagement. She did get fit for a pessary but had a great difficulty voiding with the pessary so has stopped using it. She is trying the impressa poise temporary supports for higher level activity. Casper is cleared with her insurance through September 29 however she is not being seen again in PT until the . I am sending a recertification now so she is covered for her September PT visits. Physical Therapy Plan Frequency and Duration Frequency of Treatment 1x/Week Duration of Treatment 8 weeks Plan of Care Start Date 09/01/19 Plan of Care End Date 10/27/19 Therapeutic Interventions Therapeutic Interventions Home Exercise Program,Manual Therapy,Neuromuscular Re- education,Patient/Caregiver Education,Self-Care/Home Management,Soft Tissue Mobilization,Therapeutic Exercises Next Visit Focus/Plan Next Note Type Treatment Note Next Visit Plan pelvic floor EMG biofeedback standing contractions, MFR and neuromuscular re-education.
--- NOTE | 2019-09-01 11:52 | PT.OPPOC ---
Current Diagnoses Rectocele (09/01/19) Pelvic and perineal pain (09/01/19) Urgency of urination (09/01/19) Visit Care Team Role Provider Type Deepti Kerr MD Primary Care Provider Non-Staff Specialty: Family Practice Address: [facility] [place], [address] Email: SYLVESTER Vivar Attending Provider Non-Staff Specialty: Medical Address: [address] [place] [address], [id number] Email: Plan Of Care PT-OP-T Assessment and Plan Start: 04/07/19 09:03 Freq: Status: Active Protocol: Document 09/01/19 11:30 [facility] (Rec: 09/01/19 11:52 [facility] [email or web address]) Physical Therapy Assessment Goals Four Impairment Difficulty sustaining a pelvic floor contraction in stanind greater than 5 Cloth Bleaching Range Operator Chief Goal (LTG) Casper is independent with a standing and functional exercise program including pelvic floor engagement with squats and functional movements. She is able to sustain a pelvic floor contraction in standing for 10 seconds LTG Duration 8 weeks Three Impairment myosfacial restrictions in the suprapubic fascia Detention Goal (LTG) There is improved mobility of the fascial tissue in the subrapubic fascia, over the bladder, and abdominal wall creating more space for the bladder to expand and reducing downward pressure on the pelvic organs. Casper reports decreased c/o urgency Excellent progress Two Impairment c/o swelling and heaviness in the pelvic floor especially following running Short Term Goal (STG) Casper is educated on techniques to elevate her pelvis to decrease swelling and body technician/painter training to avoid downward pressure GOAL MET Cloth Bleaching Range Operator Chief Goal (LTG) With strengthening there is a overall reduction in c/o pelvic pressure and swelling Casper has started to do more activities such as running and pelvic pressure does return with these higher level activities. She did try a pessary but did not like it. She is currently trying the impressa poise temporary bladder supports with higher level activity. One Impairment pelvic floor weakness with rectocele Cloth Bleaching Range Operator Chief Goal (LTG) Casper is able to improve strength of the levator ani from 2/5 to 4/5 MMT for improved support of her pelvic organs EXCELLENT PROGRESS Assessment Summary Assessment Casper is working towards more standing postures with pelvic floor engagement. She did get fit for a pessary but had a great difficulty voiding with the pessary so has stopped using it. She is trying the impressa poise temporary supports for higher level activity. Casper is cleared with her insurance through September 29 however she is not being seen again in PT until the . I am sending a recertification now so she is covered for her September PT visits. She would benefit from continued PT Physical Therapy Plan Frequency and Duration Frequency of Treatment 1x/Week Duration of Treatment 8 weeks Plan of Care Start Date 09/01/19 Plan of Care End Date 10/27/19 Therapeutic Interventions Therapeutic Interventions Home Exercise Program,Manual Therapy,Neuromuscular Re- education,Patient/Caregiver Education,Self-Care/Home Management,Soft Tissue Mobilization,Therapeutic Exercises Next Visit Focus/Plan Next Note Type Treatment Note Next Visit Plan pelvic floor EMG biofeedback standing contractions, MFR and neuromuscular re-education. Plan of Care Dates Plan of Care Start Date 09/01/19 Plan of Care End Date 10/27/19
--- NOTE | 2019-10-06 15:45 | PT.OTN ---
Current Diagnoses Rectocele (10/06/19) Pelvic and perineal pain (10/06/19) Urgency of urination (10/06/19) Physical Therapy Treatment Note PT-OP-A Visit Information Start: 04/07/19 09:03 Freq: Status: Active Protocol: Document 10/06/19 15:38 [facility] (Rec: 10/06/19 15:45 [facility] [email or web address]) Out-Patient Physical Therapy Visit Information Visit Information Visit Type Treatment Note Visit Start Time 10:30 Visit Stop Time 11:15 Total Visit Minutes 45 Visit Number 14 PT-OP-B Current Condition Start: 04/07/19 09:03 Freq: Status: Active Protocol: Document 04/07/19 09:00 [facility] (Rec: 04/13/19 12:13 [facility] [email or web address]) Current Condition History of Current Condition Onset Date 2010 Current Complaints pelvic organ prolapse and c/o pelvic heavyness History of Current Condition Symptoms began after her hysterectomy and bladder sling repair in 2010 but really became a issue in January 2019. She reports that she hadn't felt her rectocele until that time. She is unsure what she can do for exercises at this time as she does not want to make her symptoms worse. She likes to run for exercise but it was after intercourse and then a run in the same day that she began having symptoms of the rectocele. She reports feeling as if her bladder sling is too tight and it limits her ability to fully void. She always feels as if she needs to empty her bladder and needs to go to the bathroom. She also reports feeling that her labia is sensitive and it is tender with intercourse. She reports she is not tender in the deep internal muscles but just the labia. Casper has a history of 4 vaginal deliveries and did have tearing 2 degree with her first delivery in 1998. Her last delivery was 2007. Treatment Goals Patient/Caregiver Goals Pt's goals include being given direction on what exercises she can do and strengthening to prevent any further prolapse Current Functional Impairments (Reported) Functional Limitations- Recreation/ decreased ability to engage in Hobbies the types of exercise she would like to including running, pain occasionally causes her to avoid sexual intercourse. PT-OP-C Subjective Start: 04/07/19 09:03 Freq: Status: Active Protocol: Document 10/06/19 15:38 [facility] (Rec: 10/06/19 15:45 [facility] [email or web address]) OP-PT Subjective Patient Comments Patient Comments pt reports she has had her sons home from college for winter break and hasn't been able to do as many of her exercises consistently. She doesn't feel like she backtracked at all but has some more c/o pressure now. She doesn't see her MD in [place] until November now so she has more time to decide if she will have a revision of her surgery PT-OP-F Manual Assessment Start: 04/07/19 09:03 Freq: Status: Active Protocol: Document 04/07/19 09:00 [facility] (Rec: 04/13/19 14:47 [facility] [email or web address]) Manual Assessments Soft Tissue Assessment Soft Tissue Mobility Assessment myofascial tightness across the abdominal fascia Left > right and suprapubic fascia. There is decreased mobility of the bladder and there are fascial restrictions surrounding the bladder Casper is very tight and has high tone in her obliques even at rest bilateral PT-OP-I Pelvic Floor Start: 04/07/19 09:03 Freq: Status: Active Protocol: Document 04/07/19 09:00 [facility] (Rec: 04/13/19 14:47 [facility] [email or web address]) Pelvic Floor Assessment Urine Pelvic Floor Surgery Yes Urinary Symptoms Urge Sensation,Incomplete Emptying,Pain Other Urinary Symptoms also c/o sensitivity and pain in the labia region B, will also feel as if she is swollen following intercourse Leaks Per Day 0 Pelvic Clock Pelvic Clock 12-3 Atrophy Pelvic Clock 3-6 Atrophy Pelvic Clock 6-9 Atrophy Pelvic Clock 9-12 Atrophy Prolapse Rectocele Grade 2 Contraction Ability Voluntary Contraction Weak Voluntary Relaxation Weak Manual Muscle Testing Left 2 Manual Muscle Testing Right 2 Manual Muscle Testing Anterior 2 Manual Muscle Testing Posterior 2 PT-OP-J Posture/Palpation/Skin Start: 04/07/19 09:03 Freq: Status: Active Protocol: Document 04/07/19 09:00 [facility] (Rec: 04/13/19 14:47 [facility] [email or web address]) Palpation Assessment Location One Palpation Location bladder/suprapubic fascia Palpation Findings Soft Tissue Tightness,Spasm, Muscle Guarding Palpation Details palpation over the bladder reproduces c/o urgency PT-OP-Q Treatments Start: 04/07/19 09:03 Freq: Status: Active Protocol: Document 10/06/19 15:38 [facility] (Rec: 10/06/19 15:45 [facility] [email or web address]) Manual Therapy Treatment Soft Tissue Mobilization 5 Body Location internal release of the iliococcygeus on the left 4 Body Location Left side iliacus and oblique release 3 Body Location external pelvic floor release medial to the ischial tuberosity B Comments also worked externally with releasing from the gluteals with hip flexion 2 Body Location MFR to the subrapubic fascia and bladder and fascia around the rib cage 1 Body Location ILU massage over the colon and MFR to the abdominal wall PT-OP-T Assessment and Plan Start: 04/07/19 09:03 Freq: Status: Active Protocol: Document 10/06/19 15:38 [facility] (Rec: 10/06/19 15:45 [facility] [email or web address]) Physical Therapy Assessment Assessment Summary Assessment pt was given a xs dilator today for use with self massage to her posterior pelvic floor. I worked a lot today on opening up the fascia of the abdominal wall and suprapubic region Physical Therapy Plan Frequency and Duration Frequency of Treatment 1x/Week Duration of Treatment 8 weeks Plan of Care Start Date 09/01/19 Plan of Care End Date 10/27/19 Therapeutic Interventions Therapeutic Interventions Home Exercise Program,Manual Therapy,Neuromuscular Re- education,Patient/Caregiver Education,Self-Care/Home Management,Soft Tissue Mobilization,Therapeutic Exercises Next Visit Focus/Plan Next Note Type Treatment Note Next Visit Plan return to pelvic floor EMG biofeedback standing contractions, MFR and neuromuscular re-education.
--- NOTE | 2019-10-13 13:23 | PT.OTN ---
Current Diagnoses Rectocele (10/13/19) Pelvic and perineal pain (10/13/19) Urgency of urination (10/13/19) Physical Therapy Treatment Note PT-OP-A Visit Information Start: 04/07/19 09:03 Freq: Status: Active Protocol: Document 10/13/19 13:16 [facility] (Rec: 10/13/19 13:23 [facility] [id number]) Out-Patient Physical Therapy Visit Information Visit Information Visit Type Treatment Note Visit Start Time 10:30 Visit Stop Time 11:15 Total Visit Minutes 45 Visit Number 15 PT-OP-B Current Condition Start: 04/07/19 09:03 Freq: Status: Active Protocol: Document 04/07/19 09:00 [facility] (Rec: 04/13/19 12:13 [facility] [email or web address]) Current Condition History of Current Condition Onset Date 2010 Current Complaints pelvic organ prolapse and c/o pelvic heavyness History of Current Condition Symptoms began after her hysterectomy and bladder sling repair in 2010 but really became a issue in January 2019. She reports that she hadn't felt her rectocele until that time. She is unsure what she can do for exercises at this time as she does not want to make her symptoms worse. She likes to run for exercise but it was after intercourse and then a run in the same day that she began having symptoms of the rectocele. She reports feeling as if her bladder sling is too tight and it limits her ability to fully void. She always feels as if she needs to empty her bladder and needs to go to the bathroom. She also reports feeling that her labia is sensitive and it is tender with intercourse. She reports she is not tender in the deep internal muscles but just the labia. Casper has a history of 4 vaginal deliveries and did have tearing 2 degree with her first delivery in 1998. Her last delivery was 2007. Treatment Goals Patient/Caregiver Goals Pt's goals include being given direction on what exercises she can do and strengthening to prevent any further prolapse Current Functional Impairments (Reported) Functional Limitations- Recreation/ decreased ability to engage in Hobbies the types of exercise she would like to including running, pain occasionally causes her to avoid sexual intercourse. PT-OP-C Subjective Start: 04/07/19 09:03 Freq: Status: Active Protocol: Document 10/13/19 10:32 [facility] (Rec: 10/13/19 10:34 [facility] [id number]) OP-PT Subjective Patient Comments Patient Comments Pressure is a little better this week and bowel movements have been good. Patient Reported Progress Same PT-OP-F Manual Assessment Start: 04/07/19 09:03 Freq: Status: Active Protocol: Document 04/07/19 09:00 [facility] (Rec: 04/13/19 14:47 [facility] [email or web address]) Manual Assessments Soft Tissue Assessment Soft Tissue Mobility Assessment myofascial tightness across the abdominal fascia Left > right and suprapubic fascia. There is decreased mobility of the bladder and there are fascial restrictions surrounding the bladder Casper is very tight and has high tone in her obliques even at rest bilateral PT-OP-I Pelvic Floor Start: 04/07/19 09:03 Freq: Status: Active Protocol: Document 04/07/19 09:00 [facility] (Rec: 04/13/19 14:47 [facility] [email or web address]) Pelvic Floor Assessment Urine Pelvic Floor Surgery Yes Urinary Symptoms Urge Sensation,Incomplete Emptying,Pain Other Urinary Symptoms also c/o sensitivity and pain in the labia region B, will also feel as if she is swollen following intercourse Leaks Per Day 0 Pelvic Clock Pelvic Clock 12-3 Atrophy Pelvic Clock 3-6 Atrophy Pelvic Clock 6-9 Atrophy Pelvic Clock 9-12 Atrophy Prolapse Rectocele Grade 2 Contraction Ability Voluntary Contraction Weak Voluntary Relaxation Weak Manual Muscle Testing Left 2 Manual Muscle Testing Right 2 Manual Muscle Testing Anterior 2 Manual Muscle Testing Posterior 2 PT-OP-J Posture/Palpation/Skin Start: 04/07/19 09:03 Freq: Status: Active Protocol: Document 04/07/19 09:00 [facility] (Rec: 04/13/19 14:47 [facility] [email or web address]) Palpation Assessment Location One Palpation Location bladder/suprapubic fascia Palpation Findings Soft Tissue Tightness,Spasm, Muscle Guarding Palpation Details palpation over the bladder reproduces c/o urgency PT-OP-Q Treatments Start: 04/07/19 09:03 Freq: Status: Active Protocol: Document 10/13/19 13:16 [facility] (Rec: 10/13/19 13:23 [facility] [id number]) Therapeutic Exercises Supine Exercises 2 Supine Exercise Name quick contractions Reps/Minutes 10 reps x 2 seconds each 1 Supine Exercise Name pelvic floor long holds with EMG biofeedback Reps/Minutes 10 reps x 10 second hold time Manual Therapy Treatment Soft Tissue Mobilization 2 Body Location MFR to the subrapubic fascia and bladder and fascia around the rib cage 1 Body Location ILU massage over the colon and MFR to the abdominal wall Self-Care/Home Management Treatment Education Patient Education Home Exercise Program Other Education Review of home exercise program both stabilization and stretches PT-OP-T Assessment and Plan Start: 04/07/19 09:03 Freq: Status: Active Protocol: Document 10/13/19 13:16 [facility] (Rec: 10/13/19 13:23 [facility] [id number]) Physical Therapy Assessment Assessment Summary Assessment Casper is working hard on her pelvic floor stabilization, she notes that keeping her bowel movements regular helps her pressure but her pressure is still there even with daily bowel movements. She is still undecided about a further surgery. She feels the myofascial work really helps and would like to continue PT Physical Therapy Plan Frequency and Duration Frequency of Treatment 1x/Week Duration of Treatment 8 weeks Plan of Care Start Date 09/01/19 Plan of Care End Date 10/27/19 Next Visit Focus/Plan Next Note Type Treatment Note Next Visit Plan MFR techniques to opening up the anterior abdominal fascial and pelvic floor release. After this next visit then the patient will schedule 1 xm per month
--- NOTE | 2019-11-17 09:36 | PT.OTN ---
Current Diagnoses Rectocele (11/16/19) Pelvic and perineal pain (11/16/19) Urgency of urination (11/16/19) Physical Therapy Treatment Note PT-OP-A Visit Information Start: 04/07/19 09:03 Freq: Status: Active Protocol: Document 11/16/19 13:55 [facility] (Rec: 11/17/19 09:36 [facility] [email or web address]) Out-Patient Physical Therapy Visit Information Visit Information Visit Type Treatment Note Visit Start Time 12:45 Visit Stop Time 13:30 Total Visit Minutes 45 Visit Number 16 PT-OP-B Current Condition Start: 04/07/19 09:03 Freq: Status: Active Protocol: Document 04/07/19 09:00 [facility] (Rec: 04/13/19 12:13 [facility] [email or web address]) Current Condition History of Current Condition Onset Date 2010 Current Complaints pelvic organ prolapse and c/o pelvic heavyness History of Current Condition Symptoms began after her hysterectomy and bladder sling repair in 2010 but really became a issue in January 2019. She reports that she hadn't felt her rectocele until that time. She is unsure what she can do for exercises at this time as she does not want to make her symptoms worse. She likes to run for exercise but it was after intercourse and then a run in the same day that she began having symptoms of the rectocele. She reports feeling as if her bladder sling is too tight and it limits her ability to fully void. She always feels as if she needs to empty her bladder and needs to go to the bathroom. She also reports feeling that her labia is sensitive and it is tender with intercourse. She reports she is not tender in the deep internal muscles but just the labia. Casper has a history of 4 vaginal deliveries and did have tearing 2 degree with her first delivery in 1998. Her last delivery was 2007. Treatment Goals Patient/Caregiver Goals Pt's goals include being given direction on what exercises she can do and strengthening to prevent any further prolapse Current Functional Impairments (Reported) Functional Limitations- Recreation/ decreased ability to engage in Hobbies the types of exercise she would like to including running, pain occasionally causes her to avoid sexual intercourse. PT-OP-C Subjective Start: 04/07/19 09:03 Freq: Status: Active Protocol: Document 11/16/19 12:53 [facility] (Rec: 11/16/19 13:07 [facility] [id number]) OP-PT Subjective Patient Comments Patient Comments Pt notes she sees her doctor January 31 still debating surgery but is doing better overall. SHe is not back to normal but doing better than she ever has. Patient Reported Progress Improving PT-OP-F Manual Assessment Start: 04/07/19 09:03 Freq: Status: Active Protocol: Document 04/07/19 09:00 [facility] (Rec: 04/13/19 14:47 [facility] [email or web address]) Manual Assessments Soft Tissue Assessment Soft Tissue Mobility Assessment myofascial tightness across the abdominal fascia Left > right and suprapubic fascia. There is decreased mobility of the bladder and there are fascial restrictions surrounding the bladder Casper is very tight and has high tone in her obliques even at rest bilateral PT-OP-I Pelvic Floor Start: 04/07/19 09:03 Freq: Status: Active Protocol: Document 04/07/19 09:00 [facility] (Rec: 04/13/19 14:47 [facility] [email or web address]) Pelvic Floor Assessment Urine Pelvic Floor Surgery Yes Urinary Symptoms Urge Sensation,Incomplete Emptying,Pain Other Urinary Symptoms also c/o sensitivity and pain in the labia region B, will also feel as if she is swollen following intercourse Leaks Per Day 0 Pelvic Clock Pelvic Clock 12-3 Atrophy Pelvic Clock 3-6 Atrophy Pelvic Clock 6-9 Atrophy Pelvic Clock 9-12 Atrophy Prolapse Rectocele Grade 2 Contraction Ability Voluntary Contraction Weak Voluntary Relaxation Weak Manual Muscle Testing Left 2 Manual Muscle Testing Right 2 Manual Muscle Testing Anterior 2 Manual Muscle Testing Posterior 2 PT-OP-J Posture/Palpation/Skin Start: 04/07/19 09:03 Freq: Status: Active Protocol: Document 04/07/19 09:00 [facility] (Rec: 04/13/19 14:47 [facility] [email or web address]) Palpation Assessment Location One Palpation Location bladder/suprapubic fascia Palpation Findings Soft Tissue Tightness,Spasm, Muscle Guarding Palpation Details palpation over the bladder reproduces c/o urgency PT-OP-Q Treatments Start: 04/07/19 09:03 Freq: Status: Active Protocol: Document 11/16/19 13:55 [facility] (Rec: 11/17/19 09:36 [facility] [email or web address]) Therapeutic Exercises Supine Exercises 1 Supine Exercise Name pelvic floor long holds with EMG biofeedback Reps/Minutes 10 reps x 10 second hold time Manual Therapy Treatment Soft Tissue Mobilization 4 Body Location Left side iliacus and oblique release 3 Body Location external pelvic floor release medial to the ischial tuberosity B Comments also worked externally with releasing from the gluteals with hip flexion 2 Body Location MFR to the subrapubic fascia and bladder and fascia around the rib cage 1 Body Location ILU massage over the colon and MFR to the abdominal wall Manual Techniques 1 Type manual recheck of pelvic floor muscle strength Comments today I did not feel the rectocele present as it has been in the past. Casper also report bowel movements have been regular. She is able to contract all parts of the levator ani with 4/5 MMT PT-OP-T Assessment and Plan Start: 04/07/19 09:03 Freq: Status: Active Protocol: Document 11/16/19 13:55 [facility] (Rec: 11/17/19 09:36 [facility] [email or web address]) Physical Therapy Assessment Goals Four Impairment Difficulty sustaining a pelvic floor contraction in stanind greater than 5 Mcfp Goal (LTG) Casper is independent with a standing and functional exercise program including pelvic floor engagement with squats and functional movements. She is able to sustain a pelvic floor contraction in standing for 10 seconds GOAL MET LTG Duration 8 weeks Three Impairment myosfacial restrictions in the suprapubic fascia Bereavement Coordinator Goal (LTG) There is improved mobility of the fascial tissue in the subrapubic fascia, over the bladder, and abdominal wall creating more space for the bladder to expand and reducing downward pressure on the pelvic organs. Casper reports decreased c/o urgency Excellent progress Two Impairment c/o swelling and heaviness in the pelvic floor especially following running Short Term Goal (STG) Casper is educated on techniques to elevate her pelvis to decrease swelling and manager body training to avoid downward pressure GOAL MET Bereavement Coordinator Goal (LTG) With strengthening there is a overall reduction in c/o pelvic pressure and swelling Casper has started to do more activities such as running and pelvic pressure does return with these higher level activities. She did try a pessary but did not like it. She is currently trying the impressa poise temporary bladder supports with higher level activity. She continues to report pelvic pressure with higher activity levels and feels she is still limited . One Impairment pelvic floor weakness with rectocele Mcfp Goal (LTG) Casper is able to improve strength of the levator ani from 2/5 to 4/5 MMT for improved support of her pelvic organs GOAL MET Assessment Summary Assessment Casper has been working on a home program and comes back today after a month for a recheck. She reports feeling the best right now that she has been since last January. She has not gotten to the point where she doesn't feel the prolapse but overall her symptoms are improved. She is still limited with activity level as standing all day will increase c/o heaviness and pelvic pressure. She also remains frustrated with her ability to void as it is still difficult since her surgery. With exam today it is the first time I didn't feel the rectocele. She is able to contract all parts of her levator ani with 4/5 MMT. Casper notes the MFR really helps and would like to recheck in again in a month. Physical Therapy Plan Frequency and Duration Frequency of Treatment Every Other Week Duration of Treatment 8 Plan of Care Start Date 11/16/19 Plan of Care End Date 01/13/20 Therapeutic Interventions Therapeutic Interventions Home Exercise Program,Manual Therapy,Neuromuscular Re- education,Patient/Caregiver Education,Self-Care/Home Management,Soft Tissue Mobilization,Therapeutic Exercises Next Visit Focus/Plan Next Note Type Treatment Note Next Visit Plan MFR techniques to opening up the anterior abdominal fascial and pelvic floor release.
--- NOTE | 2019-11-17 09:38 | PT.OPPOC ---
Physical, Occupational & Speech Therapy At [facility] Current Diagnoses Rectocele (11/16/19) Pelvic and perineal pain (11/16/19) Urgency of urination (11/16/19) Visit Care Team Role Provider Type Deepti Kerr MD Primary Care Provider Non-Staff Specialty: Family Practice Address: [address] [place] [address], [id number] Email: SYLVESTER Vivar Attending Provider Non-Staff Specialty: Medical Address: [address] [place] [address], [id number] Email: Plan Of Care PT-OP-T Assessment and Plan Start: 04/07/19 09:03 Freq: Status: Active Protocol: Document 11/16/19 13:55 [facility] (Rec: 11/17/19 09:36 [facility] [email or web address]) Physical Therapy Assessment Goals Four Impairment Difficulty sustaining a pelvic floor contraction in stanind greater than 5 Mcc Goal (LTG) Casper is independent with a standing and functional exercise program including pelvic floor engagement with squats and functional movements. She is able to sustain a pelvic floor contraction in standing for 10 seconds GOAL MET LTG Duration 8 weeks Three Impairment myosfacial restrictions in the suprapubic fascia Environment Coordinator Goal (LTG) There is improved mobility of the fascial tissue in the subrapubic fascia, over the bladder, and abdominal wall creating more space for the bladder to expand and reducing downward pressure on the pelvic organs. Casper reports decreased c/o urgency Excellent progress Two Impairment c/o swelling and heaviness in the pelvic floor especially following running Short Term Goal (STG) Casper is educated on techniques to elevate her pelvis to decrease swelling and body and frame technician training to avoid downward pressure GOAL MET Mcc Goal (LTG) With strengthening there is a overall reduction in c/o pelvic pressure and swelling Casper has started to do more activities such as running and pelvic pressure does return with these higher level activities. She did try a pessary but did not like it. She is currently trying the impressa poise temporary bladder supports with higher level activity. She continues to report pelvic pressure with higher activity levels and feels she is still limited . One Impairment pelvic floor weakness with rectocele Environment Coordinator Goal (LTG) Casper is able to improve strength of the levator ani from 2/5 to 4/5 MMT for improved support of her pelvic organs GOAL MET Assessment Summary Assessment Casper has been working on a home program and comes back today after a month for a recheck. She reports feeling the best right now that she has been since last January. She has not gotten to the point where she doesn't feel the prolapse but overall her symptoms are improved. She is still limited with activity level as standing all day will increase c/o heaviness and pelvic pressure. She also remains frustrated with her ability to void as it is still difficult since her surgery. With exam today it is the first time I didn't feel the rectocele. She is able to contract all parts of her levator ani with 4/5 MMT. Casper notes the MFR really helps and would like to recheck in again in a month. Physical Therapy Plan Frequency and Duration Frequency of Treatment Every Other Week Duration of Treatment 8 Plan of Care Start Date 11/16/19 Plan of Care End Date 01/13/20 Therapeutic Interventions Therapeutic Interventions Home Exercise Program,Manual Therapy,Neuromuscular Re- education,Patient/Caregiver Education,Self-Care/Home Management,Soft Tissue Mobilization,Therapeutic Exercises Next Visit Focus/Plan Next Note Type Treatment Note Next Visit Plan MFR techniques to opening up the anterior abdominal fascial and pelvic floor release. Plan of Care Dates Plan of Care Start Date 11/16/19 Plan of Care End Date 01/13/20 Electronically Signed by: Aria Solomon, PT 11/17/19 [id number] Please Sign and Return: I have reviewed this Plan of Care and certify that the skilled therapy services above are required to meet the patient?s needs. Physician Signature Date Printed Name and Credentials Clinical Instructor Signature Printed Name and Credentials
--- NOTE | 2020-05-28 13:34 | PT.OPDS ---
Current Diagnoses Rectocele (11/16/19) Pelvic and perineal pain (11/16/19) Urgency of urination (11/16/19) Visit Care Team Role Provider Type Deepti Kerr MD Primary Care Provider Non-Staff Specialty: Family Practice Address: [address] [place], [address] Email: SYLVESTER Vivar Attending Provider Non-Staff Specialty: Medical Address: [address] [place] [address], [id number] Email: Visit Number Visit Number 16 Discharge Summary PT-OP-B Current Condition Start: 04/07/19 09:03 Freq: Status: Active Protocol: Document 04/07/19 09:00 [facility] (Rec: 04/13/19 12:13 [facility] [email or web address]) Current Condition History of Current Condition Onset Date 2010 Current Complaints pelvic organ prolapse and c/o pelvic heavyness History of Current Condition Symptoms began after her hysterectomy and bladder sling repair in 2010 but really became a issue in January 2019. She reports that she hadn't felt her rectocele until that time. She is unsure what she can do for exercises at this time as she does not want to make her symptoms worse. She likes to run for exercise but it was after intercourse and then a run in the same day that she began having symptoms of the rectocele. She reports feeling as if her bladder sling is too tight and it limits her ability to fully void. She always feels as if she needs to empty her bladder and needs to go to the bathroom. She also reports feeling that her labia is sensitive and it is tender with intercourse. She reports she is not tender in the deep internal muscles but just the labia. Casper has a history of 4 vaginal deliveries and did have tearing 2 degree with her first delivery in 1998. Her last delivery was 2007. Treatment Goals Patient/Caregiver Goals Pt's goals include being given direction on what exercises she can do and strengthening to prevent any further prolapse Current Functional Impairments (Reported) Functional Limitations- Recreation/ decreased ability to engage in Hobbies the types of exercise she would like to including running, pain occasionally causes her to avoid sexual intercourse. PT-OP-C Subjective Start: 04/07/19 09:03 Freq: Status: Active Protocol: Document 11/16/19 12:53 [facility] (Rec: 11/16/19 13:07 [facility] [id number]) OP-PT Subjective Patient Comments Patient Comments Pt notes she sees her doctor January 31 still debating surgery but is doing better overall. SHe is not back to normal but doing better than she ever has. Patient Reported Progress Improving PT-OP-F Manual Assessment Start: 04/07/19 09:03 Freq: Status: Active Protocol: Document 04/07/19 09:00 [facility] (Rec: 04/13/19 14:47 [facility] [email or web address]) Manual Assessments Soft Tissue Assessment Soft Tissue Mobility Assessment myofascial tightness across the abdominal fascia Left > right and suprapubic fascia. There is decreased mobility of the bladder and there are fascial restrictions surrounding the bladder Casper is very tight and has high tone in her obliques even at rest bilateral PT-OP-I Pelvic Floor Start: 04/07/19 09:03 Freq: Status: Active Protocol: Document 11/16/19 13:55 [facility] (Rec: 11/17/19 09:37 [facility] [email or web address]) Pelvic Floor Assessment Contraction Ability Voluntary Contraction Moderate Voluntary Relaxation Moderate Manual Muscle Testing Left 4 Manual Muscle Testing Right 4 Manual Muscle Testing Anterior 4 Manual Muscle Testing Posterior 4 PT-OP-J Posture/Palpation/Skin Start: 04/07/19 09:03 Freq: Status: Active Protocol: Document 04/07/19 09:00 [facility] (Rec: 04/13/19 14:47 [facility] [email or web address]) Palpation Assessment Location One Palpation Location bladder/suprapubic fascia Palpation Findings Soft Tissue Tightness,Spasm, Muscle Guarding Palpation Details palpation over the bladder reproduces c/o urgency PT-OP-T Assessment and Plan Start: 04/07/19 09:03 Freq: Status: Active Protocol: Document 05/28/20 13:31 [facility] (Rec: 05/28/20 13:34 [facility] [email or web address]) Physical Therapy Assessment Assessment Summary Assessment Casper has been working on a home program. She reports feeling the best right now that she has been since last January. She has not gotten to the point where she doesn't feel the prolapse but overall her symptoms are improved. She is still limited with activity level as standing all day will increase c/o heaviness and pelvic pressure. She also remains frustrated with her ability to void as it is still difficult since her surgery. With exam as of 11/16/19 it is the first time I didn't feel the rectocele. She is able to contract all parts of her levator ani with 4/5 MMT. Casper has not been seen since her 11/16/19 visit due to Covid 19 pandemic. She will be DC to a [facility] Physical Therapy Plan Discharge Physical Therapy Discharge Reasons No Longer Attending PT Discharge Comments Casper has not been seen since the Covic 19 pandemic. She will be discharged at this time. I would be happy to begin PT at any time in the future with her.
== END 2020-05-29 11:14 ==
LOC: PHYS 12:45
PROVIDERS: PCP Family Medicine
DX: N81.6 Rectocele (principal); R10.2 Pelvic and perineal pain; R39.15 Urgency of urination
CPT/HCPCS: 97110; 97112; 97140; 97161; 97535